=== PATIENT | male | born 1965 | race Caucasian/White ===

== ENCOUNTER 2021-10-15 11:46 | Emergency (ER) | payer MEDICARE, OTHER, SELFPAY ==
[2021-10-15 12:31] VITALS: BP 166/103; PULSE 80; RESP 14; TEMP 36.6; O2SAT 96; BMI 29.2
[2021-10-15 14:43] VITALS: BP 153/67; PULSE 76; RESP 16; O2SAT 99
--- NOTE | 2021-10-15 15:46 | ED_ITS ---
HPI - Back Pain/Injury General Chief Complaint: Back Pain/Injury Stated Complaint: Low back pain Time Seen by Provider: 10/15/21 15:17 Source: patient History of Present Illness HPI Narrative: The patient complains of right low back pain, rating to the right anterior thigh. He has had similar symptoms before. He has had reasonably consistent right thigh discomfort over the past 2 weeks. He has massage therapist. Back component has increased significantly over the last 2 days. He could not work today. He has no chronic back pain. He has no incontinence. He has no numbness or weakness in the lower extremities. He has no prior diagnosis of sciatica Related Data Previous Rx's Medication Instructions Recorded prednisone 20 mg tablet 60 mg PO DAILY 5 Days tab 10/15/21 Allergies Allergy/AdvReac Type Severity Reaction Status Date / Time acetaminophen [From Percocet] Allergy Verified 10/15/21 12:31 oxycodone [From Percocet] Allergy Verified 10/15/21 12:31 Patient History Social History Smoking Status: Former smoker Smoking Status: Former smoker alcohol intake frequency: holidays/special occasions only Substance Use Type: marijuana Exam Initial Vital Signs Initial Vital Signs: Vital Signs Temperature 97.8 F 10/15/21 12:31 Pulse Rate 80 10/15/21 12:31 Respiratory Rate 14 10/15/21 12:31 Blood Pressure 166/103 H 10/15/21 12:31 Pulse Oximetry 96 10/15/21 12:31 Course Orders Ordered: ED Orders 10/15/21 14:29 Urine Microscopic Stat Discontinued Medications Ketorolac Tromethamine (Ketorolac 30 Mg/Ml Vial) 30 mg IM NOW ONE Stop: 10/15/21 15:43 Prednisone (Prednisone 20 Mg Tablet) 60 mg PO NOW ONE Stop: 10/15/21 15:43 Vital Signs Vital signs: Vital Signs - 8 hr 10/15/21 12:31 10/15/21 14:43 Temperature 97.8 F Pulse Rate 80 76 Respiratory Rate 14 16 Blood Pressure 166/103 H 153/67 H Pulse Oximetry 96 99 MDM - Back Pain/Injury Lab Data Labs: Urine Dip Bedside Urine Glucose Negative Bedside Urine Bilirubin - Negative Bedside Urine Ketone - Negative Urine Specific [place] 1.015 Bedside Urine Occult Blood - Negative Bedside Urine pH 6.0 Bedside Urine Protein - Negative Bedside Urine Urobilinogen +/- 1mg Bedside Urine Nitrite - Negative Bedside Urine Leukocytes - Negative Esterase Discharge Plan Departure Patient Disposition: Home Clinical Impression: Sciatica Instructions: DI for Sciatica Activity Restrictions/Additional Instructions: Advil 3 tablets every 6 hours as needed for pain. Prednisone 60 mg daily for the next 5 days. No work for the next 3 days. Follow-up with PCM, if symptoms persist you need additional evaluation for the back pain. Return here as needed. Prescriptions: New prednisone 20 mg tablet 60 mg PO DAILY 5 Days 0RF Stand Alone Forms: Work Release Note
[2021-10-15] MEDS: KETOROLAC 30 MG/ML VIAL IM (15:52)
[2021-10-15] MEDS: predniSONE 20 MG TABLET 60 MG PO (15:53)
== END 2021-10-15 16:12 | disposition home or self-care (01) ==
PROVIDERS: Emergency Provider Emergency Medicine
DX: M54.31 Sciatica, right side (principal)
CPT/HCPCS: 81003; 96372; 99283; J1885

== ENCOUNTER 2022-08-05 11:50 | Emergency (ER) | payer MEDICARE, OTHER, SELFPAY ==
[2022-08-05 11:57] VITALS: BP 171/103; PULSE 96; RESP 17; TEMP 36.4; O2SAT 96; BMI 30.1
--- NOTE | 2022-08-05 13:40 | ED.BACK ---
HPI - Back Pain/Injury <JUAN PABLO Hong - Last Filed: 08/05/22 14:11> General Chief Complaint: Back Pain/Injury Stated Complaint: low back pain sciatica RT side all way down Time Seen by Provider: 08/05/22 13:25 Source: patient History of Present Illness HPI Narrative: 57-year-old male who has a history low back pain with sciatica symptoms on his right leg who also has a history of psoriasis, psoriatic arthritis in his on methotrexate for this, he presents to the emergency department complaining flare of his low back pain with right-sided sciatica symptoms going down the lateral and anterior thigh with numbness and tingling sensation without weakness, incontinence, urinary retention or other symptom. 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 Complains of sciatica symptoms and muscle spasms which are painful, states that he is had in the past not show dangerous abnormality. Related Data Home Medications Medication Instructions Recorded Confirmed etanercept [Enbrel] SUBCUT 07/26/22 07/26/22 lisinopril PO 07/26/22 07/26/22 methotrexate PO 07/26/22 07/26/22 omeprazole magnesium PO 07/26/22 07/26/22 sertraline 100 mg tablet 100 mg PO DAILY 07/26/22 07/26/22 Previous Rx's Medication Instructions Recorded ibuprofen 800 mg tablet 800 mg PO Q8H PRN pain #30 tabs 08/05/22 lidocaine 5 % topical patch 1 patch topical DAILY #15 ea 08/05/22 (Lidoderm) methocarbamol 750 mg tablet 750 mg PO Q8H PRN muscle spasm #20 08/05/22 tabs prednisone 20 mg tablet 20 mg PO DAILY 5 days #5 tabs 08/05/22 Allergies Allergy/AdvReac Type Severity Reaction Status Date / Time acetaminophen [From Percocet] Allergy Verified 08/05/22 11:57 oxycodone [From Percocet] Allergy Verified 08/05/22 11:57 Review of Systems <JUAN PABLO Hong - Last Filed: 08/05/22 14:11> Review of Systems ROS Unobtainable: All systems reviewed & are unremarkable except as noted in HPI and below Patient History <JUAN PABLO Hong - Last Filed: 08/05/22 14:11> Social History Smoking Status: Former smoker Smoking Status: Former smoker alcohol intake frequency: holidays/special occasions only Substance Use Type: marijuana Exam <JUAN PABLO Hong - Last Filed: 08/05/22 14:11> Narrative Exam Narrative: Reviewed vitals signs and nursing notes. General: cooperative, comfortable, in no acute distress, well groomed MSK: moves all extremities, neurovascularly intact, no weakness, normal tone, patient is standing and pacing because he states it hurts to sit, he is ambulatory, no tenderness to his lumbar spine with palpation, right side paraspinal musculature is tense Skin: brisk capillary refill, without pallor or erythema Neuro: normal speech and cognition, A&O x3, ambulatory, clear speech Psych: mental status is grossly normal, congruent mood, normal affect, pleasant and cooperative Initial Vital Signs Initial Vital Signs: Vital Signs Temperature 97.6 F 08/05/22 11:57 Pulse Rate 96 H 08/05/22 11:57 Respiratory Rate 17 08/05/22 11:57 Blood Pressure 171/103 H 08/05/22 11:57 Pulse Oximetry 96 08/05/22 11:57 Oxygen Delivery Method 08/05/22 11:57 <Bryce Last MD - Last Filed: 08/05/22 17:39> Initial Vital Signs Initial Vital Signs: Vital Signs Temperature 97.6 F 08/05/22 11:57 Pulse Rate 96 H 08/05/22 11:57 Respiratory Rate 17 08/05/22 11:57 Blood Pressure 171/103 H 08/05/22 11:57 Pulse Oximetry 96 08/05/22 11:57 Oxygen Delivery Method 08/05/22 11:57 Course <JUAN PABLO Hong - Last Filed: 08/05/22 14:11> Orders Ordered: Discontinued Medications Acetaminophen (Acetaminophen 325 Mg Tablet) 975 mg PO NOW ONE Stop: 08/05/22 13:40 Last Admin: 08/05/22 13:48 Dose: 975 mg Documented By: TRA Ketorolac Tromethamine (Ketorolac 30 Mg/Ml Vial) 30 mg IM NOW ONE Stop: 08/05/22 13:40 Last Admin: 08/05/22 13:48 Dose: 30 mg Documented By: TRA Lidocaine (Lidocaine Patch 1 Each Adh..Patch) 1 each TOP NOW ONE Stop: 08/05/22 13:40 Last Admin: 08/05/22 13:48 Dose: 1 each Documented By: NR Methocarbamol (Methocarbamol 500 Mg Tablet) 500 mg PO NOW ONE Stop: 08/05/22 13:40 Last Admin: 08/05/22 13:48 Dose: 500 mg Documented By: NR Prednisone (Prednisone 20 Mg Tablet) 40 mg PO NOW ONE Stop: 08/05/22 13:40 Last Admin: 08/05/22 13:49 Dose: 40 mg Documented By: NR Vital Signs Vital signs: Vital Signs - 8 hr 08/05/22 11:57 08/05/22 14:22 Temperature 97.6 F Pulse Rate 96 H 78 Respiratory Rate 17 20 Blood Pressure 171/103 H 130/96 H Pulse Oximetry 96 96 Oxygen Delivery Method Room Air Room Air <Bryce Last MD - Last Filed: 08/05/22 17:39> Orders Ordered: Discontinued Medications Acetaminophen (Acetaminophen 325 Mg Tablet) 975 mg PO NOW ONE Stop: 08/05/22 13:40 Last Admin: 08/05/22 13:48 Dose: 975 mg Documented By: NR Ketorolac Tromethamine (Ketorolac 30 Mg/Ml Vial) 30 mg IM NOW ONE Stop: 08/05/22 13:40 Last Admin: 08/05/22 13:48 Dose: 30 mg Documented By: TRA Lidocaine (Lidocaine Patch 1 Each Adh..Patch) 1 each TOP NOW ONE Stop: 08/05/22 13:40 Last Admin: 08/05/22 13:48 Dose: 1 each Documented By: TRA Methocarbamol (Methocarbamol 500 Mg Tablet) 500 mg PO NOW ONE Stop: 08/05/22 13:40 Last Admin: 08/05/22 13:48 Dose: 500 mg Documented By: TRA Prednisone (Prednisone 20 Mg Tablet) 40 mg PO NOW ONE Stop: 08/05/22 13:40 Last Admin: 08/05/22 13:49 Dose: 40 mg Documented By: TRA Vital Signs Vital signs: Vital Signs - 8 hr 08/05/22 11:57 08/05/22 14:22 Temperature 97.6 F Pulse Rate 96 H 78 Respiratory Rate 17 20 Blood Pressure 171/103 H 130/96 H Pulse Oximetry 96 96 Oxygen Delivery Method Room Air Room Air [facility] - Back Pain/Injury <Anita Maxwell, [facility] - Last Filed: 08/05/22 14:11> [facility] Narrative Medical decision making narrative: Patient presents with 3-4 days of worsening low back pain with right-sided sciatica, without recent trauma, and is afebrile. Suspect likely musculoskeletal etiology, pt is nontoxic appearing with no overt risk factors for epidural hematoma or abscess, caudal equina, and has a nonfocal neuro exam. Spine was non-tender to palpation, pt is ambulatory, without new weakness. Considered nephrolithiasis/pyelonephritis, epidural abscess/hematoma, ligamental injury, paraspinal or other muscular strain, chronic pain, osteoarthritis, disk injury/herniation, degenerative disease, radiculopathy, and critical cord compression. Pt is neurovascularly intact distally, afebrile, without immunosuppression or evidence of infection, peritoneal signs, hypertensive crisis, incontinence, meningeal signs, or abdominal pain with low suspicion for AAA. Without findings concerning for caudal equina, transverse myelitis, spinal vascular malformation, osteomyelitis, degenerative myelopathy, or cord infarction. He has had physical therapy in the past but states it did not help, he [facility] [place], recommend referral to physical therapy from PCP, follow-up for new evaluation of his pain. Patient's symptoms improved with above-stated therapies. Discharge Plan Departure Patient Disposition: Home Clinical Impression: Acute lumbar radiculopathy Instructions: DI for Back Pain With Sciatica, DI for Back Spasm Activity Restrictions/Additional Instructions: *You have been diagnosed with an exacerbation of low back pain with sciatica symptoms. Please use these medications to help reduce your flare, avoid overuse, over stretching, and over working this acute injury. Please follow-up with your PCP for another referral to physical therapy for another evaluation. That can be the main thing to help reduce flares. You may benefit from a referral to Rheumatology as well, [place]. Please take these medications and use heat and ice to help with your symptoms, rest, stay hydrated, return for new or worsening symptoms. If you need a referral to Orthopedics, please get 1 through and you can follow-up at [facility] if you like. You something topical like a lidocaine patch or CBD cream, take Tylenol 975 mg with ibuprofen every 8 hours with food and water, please take your steroid with food as well starting tomorrow, use a muscle relaxer every 6-8 hours as needed for spasm. *What to do: *Please continue to take your regular medications as directed. [ x New medication prescriptions sent to your pharmacy: [[facility]] [ ] New medication written as a paper prescription [ ] No new medications given *Please follow up with your primary care provider in 2-3 days, call for an appointment. Let them know you were seen in the Emergency Department and that we asked that you be seen for follow-up. We will electronically transmit a record of today's note if your PCP is in our system *If you do not have a primary care provider please contact [phone] to establish care with one of the [facility] primary care providers. *Return to Emergency Department if you should have any new, worsening, or concerning symptoms, such as [fever greater than 101F, chills, worsening pain, persistent vomiting or other bothersome symptoms]. Prescriptions: New methocarbamol 750 mg tablet 750 mg PO Q8H PRN (Reason: muscle spasm) Qty: 20 0RF ibuprofen 800 mg tablet 800 mg PO Q8H PRN (Reason: pain) Qty: 30 0RF lidocaine [Lidoderm] 5 % adhesive patch,medicated 1 patch topical DAILY Qty: 15 0RF Rx Instructions: leave on most painful area for up to 12 hrs prednisone 20 mg tablet 20 mg PO DAILY 5 Days Qty: 5 0RF No Action lisinopril PO omeprazole magnesium PO sertraline 100 mg tablet 100 mg PO DAILY methotrexate PO etanercept [Enbrel] SUBCUT Referrals: [facility] [Provider Group] Provider,Fern MONTE [Primary Care Provider] - Visit Report Forms: Patient Portal/API <Bryce Last MD - Last Filed: 08/05/22 17:39> Cosign ED Attending Cosignature Attestation: I was immediately available in the department for consultation. ?This documentation has been reviewed and I agree with assessment and plan. Supervised by Bryce Last MD
[2022-08-05] MEDS: ACETAMINOPHEN 325 MG TABLET 975 MG PO (13:48)
[2022-08-05] MEDS: methocarbamoL 500 MG TABLET PO (13:48)
[2022-08-05] MEDS: LIDOCAINE PATCH 1 EACH ADH..PATCH TOP (13:48)
[2022-08-05] MEDS: KETOROLAC 30 MG/ML VIAL IM (13:48)
[2022-08-05] MEDS: predniSONE 20 MG TABLET 40 MG PO (13:49)
[2022-08-05 14:22] VITALS: BP 130/96; PULSE 78; RESP 20; O2SAT 96
== END 2022-08-05 14:16 | disposition home or self-care (01) ==
PROVIDERS: Emergency Provider Nurse Practitioner Critical Care Medicine
DX: M54.16 Radiculopathy, lumbar region (principal)
CPT/HCPCS: 96372; 99283; J1885

== ENCOUNTER → 2022-08-20 11:20 | Outpatient (CLI) | payer MEDICARE, OTHER, SELFPAY ==
--- NOTE | 2022-08-20 11:22 | DI.MRI.S_ITS ---
PROCEDURE: MR LUMBAR SPINE WO CON INDICATIONS: Lesion of sciatic nerve, right lower limb TECHNIQUE: Noncontrast sagittal T1 spin echo and T2 fast echo, sagittal STIR, and T2 fast spin echo through the lumbar spine. In cases with scoliosis, additional coronal T2 fast spin echo may be performed. COMPARISON: None. FINDINGS: Image quality: Excellent. Alignment and Curvature: There is normal bony alignment. Bone Marrow: Marrow is of normal overall signal. No acute vertebral body compression fractures. Spinal Cord: Conus medullaris terminates at the L1 level. Visualized cord demonstrates normal signal and size. Paraspinous Soft Tissues: No paravertebral masses. T12-L1, L1-2, L2-3, and L3-4: No significant disc bulging, spinal canal stenosis, or neural foraminal narrowing. L4-L5: Mild are ventral disc bulging and mild bilateral facet hypertrophy, which result in mild bilateral neural foraminal narrowing without significant spinal canal stenosis.. L5-S1: Right paracentral disc extrusion is seen measuring approximately 1.5 x 0.8 x 0.9 cm. There is effacement of the right lateral recess and impingement on the traversing right S1 nerve root. Additional degenerative changes and mild bilateral facet hypertrophy at this level result in mild narrowing of the bilateral neural foramina. No high-grade spinal canal stenosis. IMPRESSION: 1. At L5-S1, a right paracentral disc extrusion result in effacement of the right lateral recess and impinging of the traversing right S1 nerve root. Recommend correlation with neurologic exam findings. 2. Mild degenerative changes result in mild bilateral neural foraminal narrowing at the L4-5 and L5-S1 levels. Approved by: Guerrero Cristina M.D. on 08/20/2022 at 12:04
== END ==
PROVIDERS: Referring Provider Nurse Practitioner Family; Visit Provider Nurse Practitioner Family
DX: G57.01 Lesion of sciatic nerve, right lower limb (principal); M51.27 Other intervertebral disc displacement, lumbosacral region; M47.816 Spondylosis without myelopathy or radiculopathy, lumbar region; M47.817 Spondylosis without myelopathy or radiculopathy, lumbosacral region; M48.061 Spinal stenosis, lumbar region without neurogenic claudication; M48.07 Spinal stenosis, lumbosacral region
CPT/HCPCS: 72148

== ENCOUNTER → 2022-09-10 08:57 | Outpatient (CLI) | payer MEDICARE, OTHER, SELFPAY ==
[2022-09-10 10:14] LABS: Add Manual Diff / Slide Review NO; Basophils Absolute Auto 100 /uL (0-100); Basophils Percent Auto 0.7 % (0-2); Eosinophils Absolute Auto 300 /uL (0-450); Eosinophils Percent Auto 3.3 % (2-4); Hematocrit 45.5 % (41-53); Hemoglobin 15.8 g/dL (13.5-17.5); Lymphocytes Absolute Auto 2000 /uL (1100-4500); Lymphocytes Percent Auto 25.3 % (25-40); Mean Corpuscular HGB Conc 34.8 % (30-36); Mean Corpuscular Hemoglobin 29.9 PG (26-34); Mean Corpuscular Volume 85.9 fL (80-100); Monocytes Absolute Auto 800 /uL (0-900); Monocytes Percent Auto 10.3 % (3-14); Neutrophils Absolute Auto 4800 /uL (1500-7000); Neutrophils Percent Auto 60.4 % (50-75); Platelet Count 294 X10^3/uL (150-400); Red Cell Distribution Width 13.6 % (11.6-14.8); White Blood Cell Count 7.9 X10^3/uL (4.5-11.0)
[2022-09-10 10:50] LABS: Blood Urea Nitrogen 14 mg/dL (9-20); Calcium 9.4 mg/dL (8.4-10.2); Carbon Dioxide 25 mmol/L (22-32); Chloride 101 mmol/L (98-107); Estimated Glomerular Filt Rate > 60 mL/min (>60); Glucose 94 mg/dL (70-100); HEMOLYSIS < 15 (0-50); Potassium 4.4 mmol/L (3.4-5.1); Sodium 139 mmol/L (137-145)
== END ==
PROVIDERS: Referring Provider Orthopaedic Surgery Orthopaedic Surgery of the Spine; Visit Provider Orthopaedic Surgery Orthopaedic Surgery of the Spine
DX: R73.9 Hyperglycemia, unspecified (principal); Z01.812 Encounter for preprocedural laboratory examination
CPT/HCPCS: 36415; 80048; 85025

== ENCOUNTER → 2022-09-20 09:56 | Outpatient (CLI) | payer MEDICARE, OTHER, SELFPAY ==
[2022-09-20 10:34] LABS: COVID19 -Nasal RAPID Negative (Negative)
== END ==
PROVIDERS: Referring Provider Orthopaedic Surgery Orthopaedic Surgery of the Spine; Visit Provider Orthopaedic Surgery Orthopaedic Surgery of the Spine
DX: Z20.822 Contact with and (suspected) exposure to COVID-19 (principal)
CPT/HCPCS: 87635; C9803

== ENCOUNTER 2022-09-22 06:13 | Day surgery (SDC) | payer MEDICARE, OTHER, SELFPAY ==
[2022-09-16 14:11] VITALS: BMI 30.8
[2022-09-22] VITALS (14 sets, daily range): BP systolic 90–132; BP diastolic 61–89; PULSE 67–101; RESP 8–26; TEMP 36–36.4; O2SAT 90–96; BMI 30.9
--- NOTE | 2022-09-22 | DI.RAD.S_ITS ---
PROCEDURE: XR LUMBAR SPINE 2-3V INDICATIONS: L5-S1 MICRO D TECHNIQUE: Two intraoperative fluoroscopic views of the lumbar spine were acquired. COMPARISON: None. FINDINGS: There is a surgical device projecting over the L5-S1 area to the left (as labeled on the film). IMPRESSION: Intraoperative fluoroscopy for micro discectomy. Dictated by: Victorina Palm M.D. on 09/22/2022 at 11:23 Approved by: Victorina Palm M.D. on 09/22/2022 at 11:24
[2022-09-22] MEDS: LACTATED RINGERS 1,000 ML 42 ML IV (07:07)
--- NOTE | 2022-09-22 07:48 | PM.PREOP ---
Pre-operative Note COVID-19 COVID-19 status: Negative Result date/Date tested (Pos, Neg/Pending): 09/21/22 Criteria for continued procedure: Expected advancement of disease process, Possibility delay results in more complex future surgery or treatment, Increased loss of function, Continuing or worsening of significant or severe pain, Deterioration of the patient's condition or overall health and Delay expected to result in less-positive ultimate med/surg outcome Interval Note History & Physical reviewed/Exam performed by Physician: Yes Changes to H&P: No
[2022-09-22] MEDS: CEFAZOLIN 2 GM/100 ML PREMIX 100 ML IV (08:34)
--- NOTE | 2022-09-22 08:46 | SUR.OPER ---
Prone on spine table, head in foam head support, padded chest and pelvic supports, gel pad at knees, lower legs supported by pillows; nipples, genitalia and toes free of pressure, arms secured on foam padded arm boards at <90 degrees abduction. Tape over blanket at thigh secured to table.
[2022-09-22] MEDS: BUPIVACAINE 0.25% (PF) 30 ML, EPINEPHrine 0.3 MG INJ (08:55)
[2022-09-22] MEDS: methylPREDNISolone acet DEPO 40 MG/ML VIAL INJ (08:57)
--- NOTE | 2022-09-22 09:09 | PM.OP.1 ---
Operative Date/Time/Diagnoses Date of procedure: 09/22/22 Time of procedure: 07:40 Pre-op diagnosis: 1. L5-S1 disc herniation 2. L5-S1 radiculopathy Post-op diagnosis: same Procedure & Clinicians Procedure: 1. L5-S1 right microdiscectomy 2 Utilization of microsurgical technique and operating microscope Same procedure as scheduled: Yes Indications: Patient has been having chronic back pain and worsening lumbar radiculopathy. Patient failed multiple conservative management with worsening pain weakness and numbness in her lower extremity. Patient has been having difficulty performing activity of daily living. After discussing risks benefits of treatment options, patient elected proceed with surgery. Surgeon: Aaron Langston Clinical Data Management Director: Maryse Olivera Click Yes if Unassisted: No Anesthesia Type: General Operative Notes Closure Type: primary Specimen(s): none sent Estimated Blood Loss (mL): 5 Blood products transfused: none Procedure in detail: Patient was seen in the preoperative area. Risks and benefits of the surgery was discussed with the patient. Informed consent was obtained from the patient and placed in the chart. Surgical site was marked. Patient was taken to the operative room. General anesthesia was administered. Prophylactic antibiotic was given to the patient less than 30 min before the incision was made. Patient was placed into a prone position on the Valerio table. Patient's back was then prepped and draped in the sterile fashion. Time-out was performed at this time. Using AP and lateral C-arm imaging the interval between L5-S1 was identified and marked on patient's back. A 1 inch incision 1 in from midline was made on the right side. The fascia was incised in line with skin incision. Globus MARS retractors was placed inside the incision and docked onto the L5 lamina. Using microsurgical technique and operating microscope, a L5 laminotomy was performed using a Kerrison rongeur. Liagamentum flavum was resected at the site of the laminotomy. The disc space at L5-S1 was identified. Microdiscectomy was performed by incising the annulus with #11 blade. Microcurettes and pituitary was used to removed herniated disc fragments of disc from the epidural space. After the microdiskectomy was completed, the area medial lateral superior and inferior to the area of the microdiskectomy was inspected and explored using a micro curette. No other impinging structure was identified. The wound was then irrigated with sterile normal saline. 40 mg Depo-Medrol was placed into the epidural space. The deep fascia was closed with 1-0 Vicryl. The subcutaneous tissue was closed with 2-0 Vicryl. The skin was closed with skin cristino. Patient tolerated the procedure well. There were no complications. Patient was transferred recovery room in stable condition. Complications: none Post-operative Condition: stable Disposition: PACU Plan for aftercare: Discharge to home
[2022-09-22] MEDS: fentaNYL 100 MCG/2 ML INJ IV (10:20)
[2022-09-22] MEDS: HYDROCODONE/ACET 5/325 TABLET 1 TAB PO (10:30)
--- NOTE | 2022-09-22 11:08 | SUR.PHASEII ---
Report given to
--- NOTE | 2022-09-22 11:16 | SUR.PHASEI ---
[place] sputum noted in suction container.
--- NOTE | 2022-09-22 12:25 | SUR.PHASEII ---
1145 pt with with walker with steady gait alert/oriented maintains 95% RA spo2 at rest without further signs of sedation
== END 2022-09-22 11:45 | disposition home or self-care (01) ==
PROVIDERS: PCP Nurse Practitioner Family; Referring Provider Orthopaedic Surgery Orthopaedic Surgery of the Spine; Visit Provider Orthopaedic Surgery Orthopaedic Surgery of the Spine
PROC: (CPT 63030; principal; 2022-09-22 07:45)
DX: M51.16 Intervertebral disc disorders with radiculopathy, lumbar region (principal); I10 Essential (primary) hypertension; G47.30 Sleep apnea, unspecified
CPT/HCPCS: 63030; 72100; 76000; 82962; 93005; J0171; J0330; J0690; J1030; J1100; J1170; J2310; J2704; J3010

== ENCOUNTER 2023-04-08 06:47 | Inpatient (IN) | payer MEDICARE, OTHER, SELFPAY ==
[2023-04-08] VITALS (39 sets, daily range): BP systolic 98–152; BP diastolic 59–105; PULSE 60–110; RESP 11–40; TEMP 36.2–39.2; O2SAT 90–99; BMI 30.1
--- NOTE | 2023-04-08 07:15 | DI.RAD.S_ITS ---
PROCEDURE: XR CHEST 1V INDICATIONS: fever, cough, vertigo long-standing TECHNIQUE: One view of the chest was acquired. COMPARISON: [facility], CR, CHEST 2VW, 06/23/2011, 10:58. FINDINGS: Surgical changes and devices: None. Lungs and pleura: Hazy opacity in the left upper lobe, not seen on remote chest x-ray. No pleural effusions or pneumothorax. Mediastinum: Mediastinal contours appear normal. Heart size is normal. Bones and chest wall: No suspicious bony lesions. Overlying soft tissues appear unremarkable. IMPRESSION: Hazy opacity in the left upper lobe. Findings concerning for pneumonia. Two-view chest x-ray or chest CT may be helpful for further evaluation. Dictated by: Romain Jorgensen M.D. on 04/08/2023 at 7:40 Approved by: Romain Jorgensen M.D. on 04/08/2023 at 7:43
[2023-04-08] MEDS: ACETAMINOPHEN 325 MG TABLET 975 MG PO (07:26)
[2023-04-08] MEDS: SODIUM CHLORIDE 0.9% 2,313.33 ML 771.11 ML IV (07:27)
[2023-04-08 07:28] LABS: Add Manual Diff / Slide Review NO; Basophils Absolute Auto 0 /uL (0-100); Basophils Percent Auto 0.3 % (0-2); Eosinophils Absolute Auto 300 /uL (0-450); Eosinophils Percent Auto 3.1 % (2-4); Hematocrit 43.6 % (41-53); Hemoglobin 15.2 g/dL (13.5-17.5); Lymphocytes Absolute Auto 500 /uL (1100-4500); Lymphocytes Percent Auto 5.3 % (25-40); Mean Corpuscular HGB Conc 34.8 % (30-36); Mean Corpuscular Hemoglobin 30.3 PG (26-34); Mean Corpuscular Volume 87.2 fL (80-100); Monocytes Absolute Auto 1100 /uL (0-900); Monocytes Percent Auto 11.2 % (3-14); Neutrophils Absolute Auto 7900 /uL (1500-7000); Neutrophils Percent Auto 80.1 % (50-75); Platelet Count 214 X10^3/uL (150-400); Red Cell Distribution Width 14.7 % (11.6-14.8); White Blood Cell Count 9.8 X10^3/uL (4.5-11.0)
[2023-04-08 07:37] LABS: Lactate (Lactic Acid) 2.2 mmol/L (0.7-2.1)
--- NOTE | 2023-04-08 07:37 | ED_ITS ---
HPI - Fever General Chief Complaint: Shortness of Breath/Dyspnea Stated Complaint: vertigo, dehydrated, dizzy, bodyaches Time Seen by Provider: 04/08/23 07:15 Source: patient Mode of arrival: Ambulatory History of Present Illness HPI Narrative: This is a 58-year-old male on methotrexate and Enbrel for psoriasis, lisinopril for hypertension, vertigo and sertraline daily. Patient states over the last 2 days he is had mild nonproductive cough little bit of chest discomfort and shortness of breath, fevers with night sweats and myalgias. Patient states he took Excedrin the day before felt better and then took some yesterday felt better and then overnight developed rigors, sweats. He presents with fever, tachycardic and tachypneic 96% room air. Patient states he has a longstanding history of psoriasis diagnosed around 2011 has been on methotrexate and Enbrel for this. He also notes he is got vertigo longstanding her many years often worse use his head to the right. He states that has been present and has been little bit worsening over the past month. He states it is about at its normal baseline currently. He denies headache, no neck pain, no shortness of breath but does have little chest discomfort. He denies any nausea or vomiting, he denies any diarrhea constipation, no dysuria urgency or frequency. He states he has been drinking a lot of work water this morning and has not had urinate yet. Notes he sometimes gets lymph nodes that enlarged in his right groin particularly when he is ill and they are enlarged today. Patient denies any new rash or skin changes. Patient does state he had an admission for Pseudomonas bacteremia in the 2011 timeframe, secondary to his psoriasis. Patient had back surgery in the past year, he states his back is feeling very well today and it has been very successful. Allergic to Percocet. Former tobacco user, occasional alcohol, uses marijuana but no illicit. Related Data Home Medications Medication Instructions Recorded Confirmed etanercept 50 mg/mL (1 mL) 50 mg SUBCUT 2XW 09/22/22 04/08/23 subcutaneous syringe (Enbrel) lisinopril 20 mg tablet 20 mg PO DAILY 09/22/22 04/08/23 methotrexate sodium 2.5 mg tablet 15 mg PO QWEEK 09/22/22 04/08/23 omeprazole 40 mg capsule,delayed 40 mg PO DAILY 09/22/22 04/08/23 release sertraline 100 mg tablet 100 mg PO DAILY 09/22/22 04/08/23 Allergies Allergy/AdvReac Type Severity Reaction Status Date / Time oxycodone [From Percocet] Allergy Unknown fever, Verified 09/22/22 06:43 nausea Review of Systems Review of Systems ROS Unobtainable: All systems reviewed & are unremarkable except as noted in HPI and below Patient History Medical History Depression Headache HTN (hypertension) Psoriasis Psoriatic arthritis Sleep apnea Surgical History (Updated 04/08/23 @ 15:10 by Gregg Leigh DO) H/O foot surgery History of lumbar surgery Social History household members: spouse Smoking Status: Former smoker alcohol intake: current Smoking Status: Former smoker alcohol intake frequency: holidays/special occasions only Substance Use Type: marijuana Exam Narrative Exam Narrative: GEN: well nourished, well appearing male, alert and oriented x 3, patient appears to be in mild distress. HEENT: Atraumatic, pupils are equal round reactive to light, extraocular movements are intact, nares are clear, TMs are clear with no fluid, there is no conjunctival pallor. Throat is clear without any exudates, erythema, tonsillar enlargement or uvular deviation HEART: Regular rate and rhythm without murmur, clicks, rubs. Pulses are equal in upper and lower extremities LUNGS:Lungs clear to auscultation, no wheezes, rales, crackles, chest moves symmetrically, mild tachypnea. No accessory muscle use. Patient's speaks in full sentences. ABD:bowel sounds normal, soft, non-tender, no guarding, rebound, rigidity, no masses noted, no hepatosplenomegaly :No CVA tenderness, Male: normal external examination, no penile discharge or lesions, testicles non-tender, no inguinal hernias noted. MSCL: Non-tender, patient has some mild right inguinal lymphadenopathy. No skin changes. Nontender. No muscle atrophy, muscles strength 5/5 upper and lower extremities, full range of motion, normal gait NEURO:CN 2-12 intact, sensation normal. Initial Vital Signs Initial Vital Signs: Vital Signs Temperature 102.6 F H 04/08/23 06:55 Pulse Rate 110 H 04/08/23 06:55 Respiratory Rate 40 H 04/08/23 06:55 Blood Pressure 112/76 04/08/23 06:55 Pulse Oximetry 96 04/08/23 06:55 Oxygen Delivery Method Room Air 04/08/23 06:55 Course Orders Ordered: ED Orders 04/09/23 05:00 Basic Metabolic Panel DAILY Complete Blood Count AUTO DIFF DAILY Magnesium DAILY 04/10/23 05:00 Basic Metabolic Panel DAILY Complete Blood Count AUTO DIFF DAILY Magnesium DAILY 04/11/23 05:00 Basic Metabolic Panel DAILY Complete Blood Count AUTO DIFF DAILY Magnesium DAILY Acetaminophen (Acetaminophen 325 Mg Tablet) 650 mg PO Q6H PRN PRN Reason: Fever/Mild Pain (1-3) Enoxaparin Sodium (Enoxaparin 40 Mg/0.4 Ml Syringe) 40 mg SUBCUT DAILY [facility] Cefepime HCl 2 gm/ Sodium (Chloride) 100 mls @ 200 mls/hr IV Q8H JEN Last Infusion: 04/08/23 16:25 Dose: 200 mls/hr Documented By: Admin: 04/08/23 15:40 Dose: 200 mls/hr Documented By: CASIMIRO Sodium Chloride (Normal Saline 0.9%) 250 mls @ 21 mls/hr IV Q24H PRN PRN Reason: Flush Last Admin: 04/08/23 16:10 Dose: 21 mls/hr Documented By: CASIMIRO Ibuprofen (Ibuprofen 600 Mg Tablet) 600 mg PO Q6H PRN PRN Reason: Fever/Mild Pain (1-3) Naloxone HCl (Naloxone 0.4 Mg/Ml Vial) 0.2 mg IV Q2MIN PRN PRN Reason: Opiate Reversal Ondansetron HCl (Ondansetron 4 Mg Odt) 4 mg PO Q8HR PRN PRN Reason: Nausea And Vomiting Pantoprazole Sodium (Pantoprazole Dr 40 Mg Tablet) 40 mg PO 0700 [facility] Sertraline HCl (Sertraline 50 Mg Tablet) 100 mg PO DAILY [facility] Discontinued Medications Acetaminophen (Acetaminophen 325 Mg Tablet) 975 mg PO NOW ONE Stop: 04/08/23 07:17 Last Admin: 04/08/23 07:26 Dose: 975 mg Documented By: PEG Albuterol/Ipratropium (Albuterol/Ipratropium 3 Ml Ampul) 3 ml INH NOW ONE Stop: 04/08/23 08:49 Last Admin: 04/08/23 08:59 Dose: 3 ml Documented By: TRAVIS Sodium Chloride (Normal Saline 0.9%) 2,313.33 mls @ 771.11 mls/hr 30 ml/kg infuse over 3 hr (2313.33 ml) IV NOW ONE Stop: 04/08/23 10:14 Last Infusion: 04/08/23 10:37 Dose: 771.11 mls/hr Documented By: Admin: 04/08/23 07:27 Dose: 771.11 mls/hr Documented By: PEG Levofloxacin (Levaquin) 750 mg in 150 mls @ 100 mls/hr IV NOW ONE Stop: 04/08/23 09:33 Last Infusion: 04/08/23 11:24 Dose: 0 mls/hr Documented By: Admin: 04/08/23 08:35 Dose: 100 mls/hr Documented By: PEG Ibuprofen (Ibuprofen 400 Mg Tablet) 800 mg PO NOW ONE Stop: 04/08/23 08:37 Last Admin: 04/08/23 08:44 Dose: 800 mg Documented By: PEG Meclizine HCl (Meclizine Hcl 12.5 Mg Tablet) 50 mg PO NOW ONE Stop: 04/08/23 08:37 Last Admin: 04/08/23 08:44 Dose: 50 mg Documented By: PEG Vital Signs Vital signs: Vital Signs - 8 hr 04/08/23 06:55 04/08/23 07:26 04/08/23 07:34 Temperature 102.6 F H 102.1 F H Pulse Rate 110 H 96 H Respiratory Rate 40 H 35 H Blood Pressure 112/76 Pulse Oximetry 96 96 Oxygen Delivery Method Room Air Room Air Oxygen Flow Rate 04/08/23 07:16 04/08/23 07:17 04/08/23 07:17 Temperature Pulse Rate 105 H 103 H Respiratory Rate 17 15 Blood Pressure 125/80 Pulse Oximetry 96 96 Oxygen Delivery Method Oxygen Flow Rate 04/08/23 07:30 04/08/23 07:30 04/08/23 08:31 Temperature 101.1 F H Pulse Rate 101 H Respiratory Rate 28 H Blood Pressure 135/78 Pulse Oximetry 95 Oxygen Delivery Method Oxygen Flow Rate 04/08/23 08:36 04/08/23 08:00 04/08/23 08:00 Temperature Pulse Rate 95 H Respiratory Rate 17 Blood Pressure 127/75 Pulse Oximetry 94 97 Oxygen Delivery Method Nasal Cannula Oxygen Flow Rate 2 04/08/23 08:29 04/08/23 08:30 04/08/23 09:00 Temperature Pulse Rate 95 H 78 Respiratory Rate 22 18 Blood Pressure 115/68 Pulse Oximetry 90 L 95 Oxygen Delivery Method Nasal Cannula Oxygen Flow Rate 2 04/08/23 08:30 04/08/23 09:00 04/08/23 09:00 Temperature Pulse Rate 93 H 84 Respiratory Rate 14 20 Blood Pressure 111/64 Pulse Oximetry 95 94 Oxygen Delivery Method Nasal Cannula Oxygen Flow Rate 2 04/08/23 09:30 04/08/23 09:30 04/08/23 09:35 Temperature Pulse Rate 85 82 Respiratory Rate 24 23 Blood Pressure 102/59 L Pulse Oximetry 94 92 Oxygen Delivery Method Nasal Cannula Oxygen Flow Rate 2 04/08/23 09:40 04/08/23 09:45 04/08/23 09:50 Temperature Pulse Rate 86 80 76 Respiratory Rate 23 22 13 Blood Pressure Pulse Oximetry 93 93 93 Oxygen Delivery Method Nasal Cannula Nasal Cannula Nasal Cannula Oxygen Flow Rate 2 2 2 04/08/23 09:55 04/08/23 10:00 04/08/23 10:00 Temperature Pulse Rate 83 82 Respiratory Rate 11 L 13 Blood Pressure 102/60 Pulse Oximetry 91 90 L Oxygen Delivery Method Room Air Room Air Oxygen Flow Rate 04/08/23 10:11 04/08/23 10:12 04/08/23 10:12 Temperature Pulse Rate 79 78 Respiratory Rate 21 22 Blood Pressure 98/63 Pulse Oximetry 92 92 Oxygen Delivery Method Oxygen Flow Rate 04/08/23 10:15 04/08/23 10:20 04/08/23 10:25 Temperature Pulse Rate 75 76 77 Respiratory Rate 22 23 24 Blood Pressure Pulse Oximetry 92 91 91 Oxygen Delivery Method Oxygen Flow Rate 04/08/23 10:30 04/08/23 10:31 04/08/23 10:31 Temperature Pulse Rate 80 79 Respiratory Rate 17 16 Blood Pressure 123/82 Pulse Oximetry 91 91 Oxygen Delivery Method Oxygen Flow Rate 04/08/23 10:35 Temperature Pulse Rate 79 Respiratory Rate 23 Blood Pressure Pulse Oximetry 92 Oxygen Delivery Method Oxygen Flow Rate MDM - Fever Lab Data 04/08/23 07:19 04/08/23 07:19 Labs: Lab Results 04/08/23 04/08/23 04/08/23 Range/Units 07:19 07:19 07:19 WBC 9.8 (4.5-11.0) X10^3/uL RBC 5.00 (4.5-5.9) X10^6/uL Hgb 15.2 (13.5-17.5) g/dL Hct 43.6 (41-53) % MCV 87.2 (80-100) fL MCH 30.3 (26-34) PG MCHC 34.8 (30-36) % RDW 14.7 (11.6-14.8) % Plt Count 214 (150-400) X10^3/uL Neut % (Auto) 80.1 H (50-75) % Lymph % (Auto) 5.3 L (25-40) % [place] % (Auto) 11.2 (3-14) % Eos % (Auto) 3.1 (2-4) % Baso % (Auto) 0.3 (0-2) % Neut # (Auto) 7900 H (3777-6107) /uL Lymph # (Auto) 500 L (3681-6721) /uL [place] # (Auto) 1100 H (0-900) /uL Eos # (Auto) 300 (0-450) /uL Baso # (Auto) 0 (0-100) /uL PT 13.2 H (10.1-12.7) SECONDS INR 1.2 (0.9-1.3) APTT (26-36) SECONDS Sodium 134 L (137-145) mmol/L Potassium 3.8 (3.4-5.1) mmol/L Chloride 99 (98-107) mmol/L Carbon Dioxide 24 (22-32) mmol/L BUN 9 (9-20) mg/dL Creatinine 1.09 (0.66-1.25) mg/dL Estimated GFR > 60 (>60) mL/min BUN/Creatinine Ratio 8.3 (6-22) Glucose 132 H (70-100) mg/dL Lactate (0.7-2.1) mmol/L Calcium 8.5 (8.4-10.2) mg/dL Total Bilirubin 0.8 (0.2-1.3) mg/dL AST 38 (17-59) IU/L ALT 47 (<50) IU/L Alkaline Phosphatase 62 (38-126) U/L Total Creatine Kinase 131 (55-170) U/L Troponin I < 0.012 (0.01-0.034) ng/mL Total Protein 7.5 (6.3-8.2) g/dL Albumin 4.5 (3.5-5.0) g/dL Globulin 3.0 (1.7-4.1) g/dL Albumin/Globulin Ratio 1.5 (1.0-2.8) Procalcitonin 0.08 (<0.5) ng/mL Urine Color Urine Appearance Urine pH (4.5-8.0) Ur Specific [place] (1.000-1.035) Urine Protein (Negative) Urine Glucose (UA) (Negative) g/dL Urine Ketones (NEGATIVE) Urine Occult Blood (Negative) Urine Nitrate (Negative) Urine Bilirubin (NEGATIVE) Urine Urobilinogen (0.2) E.U./dL Ur Leukocyte Esterase (NEGATIVE) Urine RBC (0-5/HPF) Urine WBC (0-5/HPF) Ur Squamous Epith Cells (0-5/HPF) Urine Bacteria (None) Ur Culture Indicated? Chlamy pneumoniae PCR (Not Detect) Adenovirus (PCR) (Not Detect) B. pertussis DNA (PCR) (Not Detecte) B.parapertussis DNA PCR (Not Detecte) Coronavirus OC43 (PCR) (Not Detect) Coronavirus HKU1 (PCR) (Not Detect) Coronavirus 229E (PCR) (Not Detect) SARS-CoV-2 (PCR) (Not Detecte) Coronavirus NL63 (PCR) (Not Detect) Human Metapneumovir PCR (Not Detect) Influenza Type A (PCR) (Not Detect) Influenza Type B (PCR) (Not Detect) M. pneumoniae (PCR) (Not Detect) Parainfluenza 1 (PCR) (Not Detect) Parainfluenza 2 (PCR) (Not Detect) Parainfluenza 3 (PCR) (Not Detect) Parainfluenza 4 (PCR) (Not Detect) RSV (PCR) (Not Detect) Entero/Rhino (PCR) (Not Detect) 04/08/23 04/08/23 04/08/23 Range/Units 07:19 07:19 07:19 WBC (4.5-11.0) X10^3/uL RBC (4.5-5.9) X10^6/uL Hgb (13.5-17.5) g/dL Hct (41-53) % MCV (80-100) fL MCH (26-34) PG MCHC (30-36) % RDW (11.6-14.8) % Plt Count (150-400) X10^3/uL Neut % (Auto) (50-75) % Lymph % (Auto) (25-40) % [place] % (Auto) (3-14) % Eos % (Auto) (2-4) % Baso % (Auto) (0-2) % Neut # (Auto) (2247-9526) /uL Lymph # (Auto) (3568-7553) /uL [place] # (Auto) (0-900) /uL Eos # (Auto) (0-450) /uL Baso # (Auto) (0-100) /uL PT (10.1-12.7) SECONDS INR (0.9-1.3) APTT 28 (26-36) SECONDS Sodium (137-145) mmol/L Potassium (3.4-5.1) mmol/L Chloride (98-107) mmol/L Carbon Dioxide (22-32) mmol/L BUN (9-20) mg/dL Creatinine (0.66-1.25) mg/dL Estimated GFR (>60) mL/min BUN/Creatinine Ratio (6-22) Glucose (70-100) mg/dL Lactate 2.2 H (0.7-2.1) mmol/L Calcium (8.4-10.2) mg/dL Total Bilirubin (0.2-1.3) mg/dL AST (17-59) IU/L ALT (<50) IU/L Alkaline Phosphatase (38-126) U/L Total Creatine Kinase (55-170) U/L Troponin I (0.01-0.034) ng/mL Total Protein (6.3-8.2) g/dL Albumin (3.5-5.0) g/dL Globulin (1.7-4.1) g/dL Albumin/Globulin Ratio (1.0-2.8) Procalcitonin (<0.5) ng/mL Urine Color Urine Appearance Urine pH (4.5-8.0) Ur Specific [place] (1.000-1.035) Urine Protein (Negative) Urine Glucose (UA) (Negative) g/dL Urine Ketones (NEGATIVE) Urine Occult Blood (Negative) Urine Nitrate (Negative) Urine Bilirubin (NEGATIVE) Urine Urobilinogen (0.2) E.U./dL Ur Leukocyte Esterase (NEGATIVE) Urine RBC (0-5/HPF) Urine WBC (0-5/HPF) Ur Squamous Epith Cells (0-5/HPF) Urine Bacteria (None) Ur Culture Indicated? Chlamy pneumoniae PCR Not detected (Not Detect) Adenovirus (PCR) Not detected (Not Detect) B. pertussis DNA (PCR) Not detected (Not Detecte) B.parapertussis DNA PCR Not detected (Not Detecte) Coronavirus OC43 (PCR) Not detected (Not Detect) Coronavirus HKU1 (PCR) Not detected (Not Detect) Coronavirus 229E (PCR) Not detected (Not Detect) SARS-CoV-2 (PCR) Not detected (Not Detecte) Coronavirus NL63 (PCR) Not detected (Not Detect) Human Metapneumovir PCR Not detected (Not Detect) Influenza Type A (PCR) Not detected (Not Detect) Influenza Type B (PCR) Not detected (Not Detect) M. pneumoniae (PCR) Not detected (Not Detect) Parainfluenza 1 (PCR) Not detected (Not Detect) Parainfluenza 2 (PCR) Not detected (Not Detect) Parainfluenza 3 (PCR) Not detected (Not Detect) Parainfluenza 4 (PCR) Not detected (Not Detect) RSV (PCR) Not detected (Not Detect) Entero/Rhino (PCR) Not detected (Not Detect) 04/08/23 04/08/23 Range/Units 08:41 09:37 WBC (4.5-11.0) X10^3/uL RBC (4.5-5.9) X10^6/uL Hgb (13.5-17.5) g/dL Hct (41-53) % MCV (80-100) fL MCH (26-34) PG MCHC (30-36) % RDW (11.6-14.8) % Plt Count (150-400) X10^3/uL Neut % (Auto) (50-75) % Lymph % (Auto) (25-40) % [place] % (Auto) (3-14) % Eos % (Auto) (2-4) % Baso % (Auto) (0-2) % Neut # (Auto) (7226-0821) /uL Lymph # (Auto) (7240-5823) /uL [place] # (Auto) (0-900) /uL Eos # (Auto) (0-450) /uL Baso # (Auto) (0-100) /uL PT (10.1-12.7) SECONDS INR (0.9-1.3) APTT (26-36) SECONDS Sodium (137-145) mmol/L Potassium (3.4-5.1) mmol/L Chloride (98-107) mmol/L Carbon Dioxide (22-32) mmol/L BUN (9-20) mg/dL Creatinine (0.66-1.25) mg/dL Estimated GFR (>60) mL/min BUN/Creatinine Ratio (6-22) Glucose (70-100) mg/dL Lactate 0.9 (0.7-2.1) mmol/L Calcium (8.4-10.2) mg/dL Total Bilirubin (0.2-1.3) mg/dL AST (17-59) IU/L ALT (<50) IU/L Alkaline Phosphatase (38-126) U/L Total Creatine Kinase (55-170) U/L Troponin I (0.01-0.034) ng/mL Total Protein (6.3-8.2) g/dL Albumin (3.5-5.0) g/dL Globulin (1.7-4.1) g/dL Albumin/Globulin Ratio (1.0-2.8) Procalcitonin (<0.5) ng/mL Urine Color Yellow Urine Appearance Clear Urine pH 7.0 (4.5-8.0) Ur Specific [place] <=1.005 (1.000-1.035) Urine Protein Negative (Negative) Urine Glucose (UA) Negative (Negative) g/dL Urine Ketones Negative (NEGATIVE) Urine Occult Blood Negative (Negative) Urine Nitrate Negative (Negative) Urine Bilirubin Negative (NEGATIVE) Urine Urobilinogen 1.0 (0.2) E.U./dL Ur Leukocyte Esterase Negative (NEGATIVE) Urine RBC None seen (0-5/HPF) Urine WBC None seen (0-5/HPF) Ur Squamous Epith Cells None seen (0-5/HPF) Urine Bacteria None seen (None) Ur Culture Indicated? Cult not indicated Chlamy pneumoniae PCR (Not Detect) Adenovirus (PCR) (Not Detect) B. pertussis DNA (PCR) (Not Detecte) B.parapertussis DNA PCR (Not Detecte) Coronavirus OC43 (PCR) (Not Detect) Coronavirus HKU1 (PCR) (Not Detect) Coronavirus 229E (PCR) (Not Detect) SARS-CoV-2 (PCR) (Not Detecte) Coronavirus NL63 (PCR) (Not Detect) Human Metapneumovir PCR (Not Detect) Influenza Type A (PCR) (Not Detect) Influenza Type B (PCR) (Not Detect) M. pneumoniae (PCR) (Not Detect) Parainfluenza 1 (PCR) (Not Detect) Parainfluenza 2 (PCR) (Not Detect) Parainfluenza 3 (PCR) (Not Detect) Parainfluenza 4 (PCR) (Not Detect) RSV (PCR) (Not Detect) Entero/Rhino (PCR) (Not Detect) Imaging Data Chest x-ray: Radiologist's Impression: [address] [address] XRay Report Signed Patient: Connor Love MR#: [id number] : 1965 Acct:[id number] Age/Sex: 58 / M Date of Service: 04/08/23 Loc: ED Accession Number: [id number] ?? Procedure: XR chest 1V Ordering Provider: Khadra Simpson D.O. PROCEDURE:? XR CHEST 1V ? INDICATIONS:? fever, cough, vertigo long-standing ? TECHNIQUE:? One view of the chest was acquired.? ? COMPARISON:? [facility], CR, CHEST 2VW, 06/23/2011, 10:58. ? FINDINGS:? ? Surgical changes and devices:? None.? ? Lungs and pleura:? Hazy opacity in the left upper lobe, not seen on remote chest x-ray.? No pleural effusions or pneumothorax.? ? Mediastinum:? Mediastinal contours appear normal.? Heart size is normal.? ? Bones and chest wall:? No suspicious bony lesions.? Overlying soft tissues appear unremarkable.? ? IMPRESSION:? Hazy opacity in the left upper lobe.? Findings concerning for pneumonia. ? ? Two-view chest x-ray or chest CT may be helpful for further evaluation.? ? Dictated by: Romain Jorgensen M.D. on 04/08/2023 at 7:40 ? ? Approved by: Romain Jorgensen M.D. on 04/08/2023 at 7:43?? ECG Data Attestation: I personally reviewed and interpreted this ECG as follows: Prior ECG tracings: available for review Interpretation: Sinus rhythm rate of 99 [place] 142 QRS 82 QTC 415. No acute ST elevation or depression. Patient has prior from 09/22/22. [facility] [place] Narrative Medical decision making narrative: 58-year-old male presents with complaint of myalgias, cough, fever, little bit of chest discomfort for the past 2 days. Patient was febrile, tachycardic tachypneic. After Tylenol, fluids he felt much better and his vital signs improved accept he did have a drop in his O2 sat 88% at rest. Patient was not particularly wheezy but was given 1 DuoNeb , on re-evaluation patient feels much improved but continues to have hypoxia down to 89% on RA. With ambulation drops to 88%. Patient's workup shows hazy opacification in the left upper lobe was consistent with pneumonia, lactate slightly elevated at 2.2 and improved on repeat. CBC is negative, coags negative, sodium is 134, renal function and electrolytes are otherwise normal, glucose is 132, troponins negative as well as procalcitonin. UA is negative, respiratory panel is negative. Patient had 30cc/kg bolus ordered. Levaquin IV given. Patient BP dropped but had not completed fluid bolus. Spoke with Dr. Leigh, hospitalist: Patient accepted to inpatient admission. Critical Care Time Critical Care Time Attestation: The high probability of a clinically significant, sudden or life threatening deterioration of the [cardiac, pulm] system(s) required my full and direct attention, intervention and personal management. The aggregate critical care time was [] minutes. This time is in addition to time spent performing reported procedures but includes the following: [x] Data Review and interpretation [x] Patient assessment and monitoring of vital signs [x] Documentation [x] Medication orders and management Discharge Plan Departure Patient Disposition: Admitted As Inpatient Clinical Impression: Pneumonia, Sepsis Admit Date/Time: 04/08/23 11:02 Admit Provider: Gregg Leigh
[2023-04-08 07:38] LABS: Alanine Aminotransferase 47 IU/L (<50); Albumin 4.5 g/dL (3.5-5.0); Albumin Globulin Ratio 1.5 (1.0-2.8); Alkaline Phosphatase 62 U/L (38-126); Aspartate Aminotransferase 38 IU/L (17-59); BUN Creatinine Ratio 8.3 (6-22); Bilirubin Total 0.8 mg/dL (0.2-1.3); Blood Urea Nitrogen 9 mg/dL (9-20); Calcium 8.5 mg/dL (8.4-10.2); Carbon Dioxide 24 mmol/L (22-32); Chloride 99 mmol/L (98-107); Creatine Kinase 131 U/L (55-170); Estimated Glomerular Filt Rate > 60 mL/min (>60); Glucose 132 mg/dL (70-100); HEMOLYSIS < 15 (0-50); INR 1.2 (0.9-1.3); Potassium 3.8 mmol/L (3.4-5.1); Prothrombin Time 13.2 SECONDS (10.1-12.7); Sodium 134 mmol/L (137-145); Total Protein 7.5 g/dL (6.3-8.2)
[2023-04-08 07:44] LABS: PTT Partial Thromboplastin Tim 28 SECONDS (26-36)
[2023-04-08 07:50] LABS: Troponin I < 0.012 ng/mL (0.01-0.034)
[2023-04-08 07:55] LABS: Procalcitonin 0.08 ng/mL (<0.5)
[2023-04-08 08:32] LABS: Adenovirus Not Detected (Not Detect); B. parapertussis Not Detected (Not Detecte); Bordetella pertussis Not Detected (Not Detecte); Chlamydophila pneumoniae Not Detected (Not Detect); Coronavirus 229E Not Detected (Not Detect); Coronavirus HKU1 Not Detected (Not Detect); Coronavirus NL 63 Not Detected (Not Detect); Coronavirus OC43 Not Detected (Not Detect); Human Metapneumovirus Not Detected (Not Detect); Human Rhinovirus/Enterovirus Not Detected (Not Detect); Influenza A Not Detected (Not Detect); Influenza B Not Detected (Not Detect); Mycoplasma pneumoniae Not Detected (Not Detect); Parainfluenza Virus 1 Not Detected (Not Detect); Parainfluenza Virus 2 Not Detected (Not Detect); Parainfluenza Virus 3 Not Detected (Not Detect); Parainfluenza Virus 4 Not Detected (Not Detect); Respiratory Syncytial Virus Not Detected (Not Detect); SARS- CoV-2 Not Detected (Not Detecte)
[2023-04-08] MEDS: levoFLOXacin 750 MG/150 ML PIGGYBACK 100 MG IV (08:35)
[2023-04-08] MEDS: MECLIZINE HCL 12.5 MG TABLET 50 MG PO (08:44)
[2023-04-08] MEDS: IBUPROFEN 400 MG TABLET 800 MG PO (08:44)
[2023-04-08 08:49] LABS: Appearance Urine UA CLEAR; Bilirubin Urine UA NEGATIVE (NEGATIVE); Color Urine UA YELLOW; Glucose Urine UA NEGATIVE (Negative); Ketones Urine UA NEGATIVE (NEGATIVE); Leukocyte Esterase Urine UA NEGATIVE (NEGATIVE); Nitrite Urine UA NEGATIVE (Negative); Occult Blood Urine UA NEGATIVE (Negative); Protein Urine UA NEGATIVE (Negative); Specific Gravity Urine UA <=1.005 (1.000-1.035)
--- NOTE | 2023-04-08 08:50 | PC.NURSE ---
patient's o2 saturation dropped down to 88% while sitting bed. He did not appear or report that he was in resp distress but did report head fog. He was placed on 2l NC and his sat came up to 94% while reporting an improvement of head fog
[2023-04-08 08:53] LABS: Bacteria Urine None Seen; Culture Indicated Urine Cult Not Indicated; RBC Urine None Seen (0-5/HPF); Squamous Epithelial Cell Urine None Seen (0-5/HPF); WBC Urine None Seen (0-5/HPF)
[2023-04-08] MEDS: ALBUTEROL/IPRATROPIUM 3 ML AMPUL INH (08:59)
--- NOTE | 2023-04-08 09:23 | PC.NURSE ---
patient states that he feels. his o2 was reduced to 1 L NC and is 93%
[2023-04-08 09:24] LABS: Reflexed Lactate in 2 Hours Y
[2023-04-08 09:51] LABS: Lactate 2HR (Lactic Acid Rflx) 0.9 mmol/L (0.7-2.1)
--- NOTE | 2023-04-08 09:52 | PC.NURSE ---
patient's oxygen was turned off to trial his o2 needs.
--- NOTE | 2023-04-08 10:17 | PC.NURSE ---
patient was given an ambulation trial off oxygen and his O2 saturation fluctuated from 89 to 93% but spent a majority of his walk around 91%. He reported that he is feeling better.
--- NOTE | 2023-04-08 10:40 | PC.NURSE ---
was taken off oxygen and his saturation is holding around 93%
--- NOTE | 2023-04-08 11:05 | PC.NURSE ---
Patient went down to 90% on RA. Provider made aware. He was then placed on 2L NC as per provider order.
--- NOTE | 2023-04-08 13:12 | PC.NURSE ---
Addendum entered by Zulma Mott R.N. 04/08/23 14:29: Resting comfortably at this time and denies discomfort. Original Note: Patients breath sounds are clear upon auscultation. His skin is clear, accept patient has redness on the corners of his big toe. Area's are not open, they are blanchable. He denies pain and is now eating lunch.
--- NOTE | 2023-04-08 14:42 | P.HP_ITS ---
History of Present Illness History of Present Illness Date Patient Seen: 04/08/23 Time Patient Seen: 14:00 Chief complaint: vertigo, dehydrated, dizzy, bodyaches Narrative: This is a 58 M with PMH of psoriatic arthritis on embrel and methotrexate, depression and anxiety (former ), and HTN who presented with worsening dizziness over the past two days and myalgias. He denies overt fever or chills, cough, but has felt a bit more short of breath. He describes it more of a difficulty / pain with deep inspiration on the top part of his sternum. He denies new rashes, abdominal pain, dysuria, urinary frequency. He has a chronic posterior headache that has returned since this morning as well, though it is a bit better now after therapies in the ER. He denies neck stiffness, vision changes, palpitations, focal numbness or weakness. He has had pseudomonal bacteremia twice in the past, though most recent was still many years ago. In the emergency room, he was febrile to 102.6, with soft but not overtly hypotensive blood pressures, and he was hypoxic with an O2 saturation on room air of 88 percent. Show labs were notable for a normal WBC count, mild hyponatremia with sodium of 134, but the remainder of his labs are unremarkable. Chest x-ray showed cyst was unremarkable. Respiratory panel was negative. Patient was admitted for further management of pneumonia with acute respiratory failure with hypoxia. [facility] Medical History Depression Headache HTN (hypertension) Psoriasis Psoriatic arthritis Sleep apnea Surgical History (Updated 04/08/23 @ 15:10 by Gregg Leigh DO) H/O foot surgery History of lumbar surgery Social History household members: spouse Smoking Status: Former smoker alcohol intake: current Meds Home Medications and Allergies Home Medications Medication Instructions Recorded Confirmed Type etanercept 50 mg/mL (1 mL) 50 mg SUBCUT 2XW 09/22/22 04/08/23 History subcutaneous syringe (Enbrel) lisinopril 20 mg tablet 20 mg PO DAILY 09/22/22 04/08/23 History methotrexate sodium 2.5 mg tablet 15 mg PO QWEEK 09/22/22 04/08/23 History omeprazole 40 mg capsule,delayed 40 mg PO DAILY 09/22/22 04/08/23 History release sertraline 100 mg tablet 100 mg PO DAILY 09/22/22 04/08/23 History Allergies Allergy/AdvReac Type Severity Reaction Status Date / Time oxycodone [From Percocet] Allergy Unknown fever, Verified 09/22/22 06:43 nausea Review of Systems Review of Systems Narrative: All other systems reviewed with the patient and are negative unless otherwise stated. Exam Vital Signs (past 8 hours): - 04/08/23 06:55 04/08/23 07:26 04/08/23 07:34 Temperature 102.6 F H 102.1 F H Pulse Rate 110 H 96 H Respiratory Rate 40 H 35 H Blood Pressure 112/76 Pulse Oximetry 96 96 Oxygen Delivery Method Room Air Room Air Oxygen Flow Rate 04/08/23 07:16 04/08/23 07:17 04/08/23 07:17 Temperature Pulse Rate 105 H 103 H Respiratory Rate 17 15 Blood Pressure 125/80 Pulse Oximetry 96 96 Oxygen Delivery Method Oxygen Flow Rate 04/08/23 07:30 04/08/23 07:30 04/08/23 08:31 Temperature 101.1 F H Pulse Rate 101 H Respiratory Rate 28 H Blood Pressure 135/78 Pulse Oximetry 95 Oxygen Delivery Method Oxygen Flow Rate 04/08/23 08:36 04/08/23 08:00 04/08/23 08:00 Temperature Pulse Rate 95 H Respiratory Rate 17 Blood Pressure 127/75 Pulse Oximetry 94 97 Oxygen Delivery Method Nasal Cannula Oxygen Flow Rate 2 04/08/23 08:29 04/08/23 08:30 04/08/23 09:00 Temperature Pulse Rate 95 H 78 Respiratory Rate 22 18 Blood Pressure 115/68 Pulse Oximetry 90 L 95 Oxygen Delivery Method Nasal Cannula Oxygen Flow Rate 2 04/08/23 08:30 04/08/23 09:00 04/08/23 09:00 Temperature Pulse Rate 93 H 84 Respiratory Rate 14 20 Blood Pressure 111/64 Pulse Oximetry 95 94 Oxygen Delivery Method Nasal Cannula Oxygen Flow Rate 2 04/08/23 09:30 04/08/23 09:30 04/08/23 09:35 Temperature Pulse Rate 85 82 Respiratory Rate 24 23 Blood Pressure 102/59 L Pulse Oximetry 94 92 Oxygen Delivery Method Nasal Cannula Oxygen Flow Rate 2 04/08/23 09:40 04/08/23 09:45 04/08/23 09:50 Temperature Pulse Rate 86 80 76 Respiratory Rate 23 22 13 Blood Pressure Pulse Oximetry 93 93 93 Oxygen Delivery Method Nasal Cannula Nasal Cannula Nasal Cannula Oxygen Flow Rate 2 2 2 04/08/23 09:55 04/08/23 10:00 04/08/23 10:00 Temperature Pulse Rate 83 82 Respiratory Rate 11 L 13 Blood Pressure 102/60 Pulse Oximetry 91 90 L Oxygen Delivery Method Room Air Room Air Oxygen Flow Rate 04/08/23 10:11 04/08/23 10:12 04/08/23 10:12 Temperature Pulse Rate 79 78 Respiratory Rate 21 22 Blood Pressure 98/63 Pulse Oximetry 92 92 Oxygen Delivery Method Oxygen Flow Rate 04/08/23 10:15 04/08/23 10:20 04/08/23 10:25 Temperature Pulse Rate 75 76 77 Respiratory Rate 22 23 24 Blood Pressure Pulse Oximetry 92 91 91 Oxygen Delivery Method Oxygen Flow Rate 04/08/23 10:30 04/08/23 10:31 04/08/23 10:31 Temperature Pulse Rate 80 79 Respiratory Rate 17 16 Blood Pressure 123/82 Pulse Oximetry 91 91 Oxygen Delivery Method Oxygen Flow Rate 04/08/23 10:35 04/08/23 10:40 04/08/23 10:45 Temperature Pulse Rate 79 74 75 Respiratory Rate 23 23 22 Blood Pressure Pulse Oximetry 92 91 90 L Oxygen Delivery Method Oxygen Flow Rate 04/08/23 10:50 04/08/23 10:55 04/08/23 11:00 Temperature Pulse Rate 76 73 Respiratory Rate 22 23 Blood Pressure 107/60 Pulse Oximetry 90 L 90 L Oxygen Delivery Method Oxygen Flow Rate 04/08/23 11:00 04/08/23 11:15 04/08/23 12:00 Temperature 97.2 F L Pulse Rate 73 69 68 Respiratory Rate 21 19 20 Blood Pressure 107/59 L Pulse Oximetry 90 L 95 99 Oxygen Delivery Method Nasal Cannula Oxygen Flow Rate 2 2 Oxygen Delivery Method Nasal Cannula Oxygen Flow Rate 2 Narrative Exam Narrative: General:? Patient is well developed and well nourished, in no distress at this time. HEENT:? Normocephalic, atraumatic, extraocular muscles intact, oral pharynx is clear and mucous membranes are moist. Neck: supple and symmetric, trachea is midline, no cervical adenopathy. Negative for JVD Chest:? Normal AP diameter and contour without kyphoscoliosis, no tachypnea, equal chest rise bilaterally. Lungs:? CTA b/l no wheezing rhonchi or rales. Cardio:?RRR no m/r/g. Abdomen: S NT ND. No CVA tenderness. Musculoskeletal:? Muscle strength and tone are equal within normal limits, no deformity. Extremities: No edema or joint effusions. No cyanosis or clubbing. Skin:? Pale,? Warm to touch,dry and intact without rashes, ulcerations or petechiae.? Neuro:? Alert and orientated x3,? sensation to touch intact in all extremities, no gross deficits noted of cranial nerves. Psych:? Patient has a well-kept appearance, appropriate affect, mental status attitude thought context and judgment are appropriate for age. Objective Labs 04/08/23 07:19 04/08/23 07:19 Labs: Laboratory Results - last 24 hr 04/08/23 04/08/23 04/08/23 07:19 07:19 07:19 WBC 9.8 RBC 5.00 Hgb 15.2 Hct 43.6 MCV 87.2 MCH 30.3 MCHC 34.8 RDW 14.7 Plt Count 214 Neut % (Auto) 80.1 H Lymph % (Auto) 5.3 L [place] % (Auto) 11.2 Eos % (Auto) 3.1 Baso % (Auto) 0.3 Neut # (Auto) 7900 H Lymph # (Auto) 500 L [place] # (Auto) 1100 H Eos # (Auto) 300 Baso # (Auto) 0 PT 13.2 H INR 1.2 APTT Sodium 134 L Potassium 3.8 Chloride 99 Carbon Dioxide 24 BUN 9 Creatinine 1.09 Estimated GFR > 60 BUN/Creatinine Ratio 8.3 Glucose 132 H Lactate Calcium 8.5 Total Bilirubin 0.8 AST 38 ALT 47 Alkaline Phosphatase 62 Total Creatine Kinase 131 Troponin I < 0.012 Total Protein 7.5 Albumin 4.5 Globulin 3.0 Albumin/Globulin Ratio 1.5 Procalcitonin 0.08 Urine Color Urine Appearance Urine pH Ur Specific [place] Urine Protein Urine Glucose (UA) Urine Ketones Urine Occult Blood Urine Nitrate Urine Bilirubin Urine Urobilinogen Ur Leukocyte Esterase Urine RBC Urine WBC Ur Squamous Epith Cells Urine Bacteria Ur Culture Indicated? Chlamy pneumoniae PCR Adenovirus (PCR) B. pertussis DNA (PCR) B.parapertussis DNA PCR Coronavirus OC43 (PCR) Coronavirus HKU1 (PCR) Coronavirus 229E (PCR) SARS-CoV-2 (PCR) Coronavirus NL63 (PCR) Human Metapneumovir PCR Influenza Type A (PCR) Influenza Type B (PCR) M. pneumoniae (PCR) Parainfluenza 1 (PCR) Parainfluenza 2 (PCR) Parainfluenza 3 (PCR) Parainfluenza 4 (PCR) RSV (PCR) Entero/Rhino (PCR) 04/08/23 04/08/23 04/08/23 07:19 07:19 07:19 WBC RBC Hgb Hct MCV MCH MCHC RDW Plt Count Neut % (Auto) Lymph % (Auto) [place] % (Auto) Eos % (Auto) Baso % (Auto) Neut # (Auto) Lymph # (Auto) [place] # (Auto) Eos # (Auto) Baso # (Auto) PT INR APTT 28 Sodium Potassium Chloride Carbon Dioxide BUN Creatinine Estimated GFR BUN/Creatinine Ratio Glucose Lactate 2.2 H Calcium Total Bilirubin AST ALT Alkaline Phosphatase Total Creatine Kinase Troponin I Total Protein Albumin Globulin Albumin/Globulin Ratio Procalcitonin Urine Color Urine Appearance Urine pH Ur Specific [place] Urine Protein Urine Glucose (UA) Urine Ketones Urine Occult Blood Urine Nitrate Urine Bilirubin Urine Urobilinogen Ur Leukocyte Esterase Urine RBC Urine WBC Ur Squamous Epith Cells Urine Bacteria Ur Culture Indicated? Chlamy pneumoniae PCR Not detected Adenovirus (PCR) Not detected B. pertussis DNA (PCR) Not detected B.parapertussis DNA PCR Not detected Coronavirus OC43 (PCR) Not detected Coronavirus HKU1 (PCR) Not detected Coronavirus 229E (PCR) Not detected SARS-CoV-2 (PCR) Not detected Coronavirus NL63 (PCR) Not detected Human Metapneumovir PCR Not detected Influenza Type A (PCR) Not detected Influenza Type B (PCR) Not detected M. pneumoniae (PCR) Not detected Parainfluenza 1 (PCR) Not detected Parainfluenza 2 (PCR) Not detected Parainfluenza 3 (PCR) Not detected Parainfluenza 4 (PCR) Not detected RSV (PCR) Not detected Entero/Rhino (PCR) Not detected 04/08/23 04/08/23 08:41 09:37 WBC RBC Hgb Hct MCV MCH MCHC RDW Plt Count Neut % (Auto) Lymph % (Auto) [place] % (Auto) Eos % (Auto) Baso % (Auto) Neut # (Auto) Lymph # (Auto) [place] # (Auto) Eos # (Auto) Baso # (Auto) PT INR APTT Sodium Potassium Chloride Carbon Dioxide BUN Creatinine Estimated GFR BUN/Creatinine Ratio Glucose Lactate 0.9 Calcium Total Bilirubin AST ALT Alkaline Phosphatase Total Creatine Kinase Troponin I Total Protein Albumin Globulin Albumin/Globulin Ratio Procalcitonin Urine Color Yellow Urine Appearance Clear Urine pH 7.0 Ur Specific [place] <=1.005 Urine Protein Negative Urine Glucose (UA) Negative Urine Ketones Negative Urine Occult Blood Negative Urine Nitrate Negative Urine Bilirubin Negative Urine Urobilinogen 1.0 Ur Leukocyte Esterase Negative Urine RBC None seen Urine WBC None seen Ur Squamous Epith Cells None seen Urine Bacteria None seen Ur Culture Indicated? Cult not indicated Chlamy pneumoniae PCR Adenovirus (PCR) B. pertussis DNA (PCR) B.parapertussis DNA PCR Coronavirus OC43 (PCR) Coronavirus HKU1 (PCR) Coronavirus 229E (PCR) SARS-CoV-2 (PCR) Coronavirus NL63 (PCR) Human Metapneumovir PCR Influenza Type A (PCR) Influenza Type B (PCR) M. pneumoniae (PCR) Parainfluenza 1 (PCR) Parainfluenza 2 (PCR) Parainfluenza 3 (PCR) Parainfluenza 4 (PCR) RSV (PCR) Entero/Rhino (PCR) Assessment & Plan Assessment & Plan narrative: 1. Community acquired pneumonia with acute respiratory failure with hypoxia. Rule out sepsis - given history of pseudomonal bacteremia, will cover for this with cefepime 2g q8 hr for now - continue to wean from O2 as tolerated, goal O2 90-96% while on supplemental therapy - consider CT imaging if worsening hypoxia or continued fever. - SOFA score <2, but may be early sepsis - patient clinically appears euvolemic, will hold on additional fluids at this time. He is tolerating a diet. - Respiratory panel is negative. 2. Psoriatic arthritis on immunosuppression therapy - hold enbrel and MTX 3. HTN, chronic - hold lisinopril in setting of low-normal BP and possible sepsis noted above. 4. Anxiety and depression - continue sertraline Code: Full, surrogate is patient's spouse I have utilized all available immediate resources to obtain, update, or review the patient's current medications. Additional history obtained via ER provider. Discussed plan of care with patient. I have reviewed patient's labs and imaging and recent documentation personally. Dispo: Admitted inpatient, anticipated length of stay is beyond two midnights. Quality VTE Deep Vein Thrombosis/Pulmonary Embolism Present on Admission: No MIPS - Admit I confirm the patient?s Advance Care Plan is present, Code status is documented, Surrogate decision maker is in patient?s record [If Yes, STOP here]: Yes
[2023-04-08] MEDS: CEFEPIME 2 GM in SODIUM CHLORIDE 0.9% 100 ML IV ×2 (15:40→21:43)
[2023-04-08] MEDS: SODIUM CHLORIDE 0.9% 250 ML 21 ML IV (16:10)
[2023-04-08] MEDS: ACETAMINOPHEN 325 MG TABLET 650 MG PO (20:13)
[2023-04-08] MEDS: LORazepam 0.5 MG TABLET PO (20:59)
[2023-04-08] MEDS: SERTRALINE 50 MG TABLET 100 MG PO (20:59)
[2023-04-08] MEDS: HYDROCODONE/ACET 5/325 TABLET 1 TAB PO (21:42)
[2023-04-08] MEDS: IBUPROFEN 600 MG TABLET PO (23:14)
[2023-04-09] VITALS (13 sets, daily range): BP systolic 106–139; BP diastolic 67–85; PULSE 64–120; RESP 16–25; TEMP 36.2–38.2; O2SAT 93–100
[2023-04-09] MEDS: ACETAMINOPHEN 325 MG TABLET 650 MG PO ×4 (02:18→21:55)
[2023-04-09 04:51] LABS: Add Manual Diff / Slide Review NO; Basophils Absolute Auto 100 /uL (0-100); Basophils Percent Auto 1.3 % (0-2); Eosinophils Absolute Auto 400 /uL (0-450); Eosinophils Percent Auto 5.7 % (2-4); Hematocrit 40.2 % (41-53); Lymphocytes Absolute Auto 600 /uL (1100-4500); Lymphocytes Percent Auto 9.2 % (25-40); Mean Corpuscular HGB Conc 34.8 % (30-36); Mean Corpuscular Hemoglobin 30.3 PG (26-34); Mean Corpuscular Volume 87.1 fL (80-100); Monocytes Absolute Auto 1200 /uL (0-900); Monocytes Percent Auto 16.8 % (3-14); Neutrophils Absolute Auto 4700 /uL (1500-7000); Platelet Count 192 X10^3/uL (150-400); Red Blood Cell Count 4.61 X10^6/uL (4.5-5.9); Red Cell Distribution Width 14.7 % (11.6-14.8)
[2023-04-09 05:03] LABS: BUN Creatinine Ratio 9.2 (6-22); Blood Urea Nitrogen 11 mg/dL (9-20); Calcium 8.2 mg/dL (8.4-10.2); Carbon Dioxide 28 mmol/L (22-32); Chloride 104 mmol/L (98-107); Estimated Glomerular Filt Rate > 60 mL/min (>60); Glucose 120 mg/dL (70-100); HEMOLYSIS 16 (0-50); Potassium 4.2 mmol/L (3.4-5.1); Sodium 137 mmol/L (137-145)
[2023-04-09] MEDS: IBUPROFEN 600 MG TABLET PO ×2 (05:52→17:56)
[2023-04-09] MEDS: CEFEPIME 2 GM in SODIUM CHLORIDE 0.9% 100 ML IV ×3 (05:52→21:54)
[2023-04-09] MEDS: PANTOPRAZOLE DR 40 MG TABLET PO (06:06)
--- NOTE | 2023-04-09 09:11 | CM.DANOTE ---
Reviewed chart with existing information, and patient discussed in multidisciplinary rounds this morning. Met with patient and introduced to care coordination and discharge planning. They agree to assessment. Pt is a 58 year old admitted for pneumonia, hx psoriasis on immunosuppression. States he is not normally short of breath or on 02. States he is usually independent and still works as a massage therapist. Confirms his truck is in parking lot and he can drive himself home to [place]. DCP is home with established primary care PCP: Issa Tobin last seen about 6 months ago, and [facility] D[facility]: None Payer: Medicare, Barriers: none foreseen Corina Melvin RN, CM Discharge Planning/Care Management CM Discharge Assessment Start: 04/09/23 09:03 Freq: Status: Active Protocol: Document 04/09/23 09:03 DAGMAR (Rec: 04/09/23 09:06 BQ [id number]) Discharge Planning Assessment Assigned Roadway Designer Corina Melvin RN, CM Advance Directives? No History Provided By Patient,Medical Record Has Patient been admitted in last 30 No days? Prior Living Arrangements House Household Members spouse Type of transporation used prior to Drives own vehicle admit Independent with ADL's Yes Is patient alert and oriented? 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 # of Roadway Designer Review Status In Process Next Review Type Continued Stay Review
[2023-04-09] MEDS: AZITHROMYCIN 250 MG TABLET 500 MG PO (09:21)
[2023-04-09] MEDS: SERTRALINE 50 MG TABLET 100 MG PO (09:21)
[2023-04-09] MEDS: LORazepam 0.5 MG TABLET PO ×2 (09:21→19:57)
[2023-04-09] MEDS: guaiFENesin ER 600 MG TAB PO ×2 (11:04→19:57)
--- NOTE | 2023-04-09 15:28 | P.PN_ITS ---
Subjective Subjective Interval history: BCx no growth at 24 hours. Still on 2L NC. Patient overall feels much better than when he first arrived. Had temp up to 100.4F overnight. Exam Vital Signs (past 8 hours): - 04/09/23 09:24 04/09/23 12:00 Temperature 97.1 F L Pulse Rate 64 Respiratory Rate 16 Blood Pressure 107/67 Pulse Oximetry 95 97 Oxygen Delivery Method Nasal Cannula Oxygen Flow Rate 2 Fraction of Inspired Oxygen 28 Fraction of Inspired Oxygen 28 SaO2/FiO2 Ratio 339 Oxygen Delivery Method Nasal Cannula Oxygen Flow Rate 2 Narrative Exam Narrative: General:? Patient is well developed and well nourished, in no distress at this time. HEENT:? Normocephalic, atraumatic, extraocular muscles intact, oral pharynx is clear and mucous membranes are moist. Neck: supple and symmetric, trachea is midline, no cervical adenopathy. Negative for JVD Chest:? Normal AP diameter and contour without kyphoscoliosis, no tachypnea, equal chest rise bilaterally. Lungs:? CTA b/l no wheezing rhonchi or rales. Cardio:?RRR no m/r/g. Abdomen: S NT ND. No CVA tenderness. Musculoskeletal:? Muscle strength and tone are equal within normal limits, no deformity. Extremities: No edema or joint effusions. No cyanosis or clubbing. Skin:? Pale,? Warm to touch,dry and intact without rashes, ulcerations or petechiae.? Neuro:? Alert and orientated x3,? sensation to touch intact in all extremities, no gross deficits noted of cranial nerves. Psych:? Patient has a well-kept appearance, appropriate affect, mental status attitude thought context and judgment are appropriate for age. Objective Labs 04/09/23 04:31 04/09/23 04:31 Labs: Laboratory Results - last 24 hr 04/09/23 04/09/23 04:31 04:31 WBC 7.0 RBC 4.61 Hgb 14.0 Hct 40.2 L MCV 87.1 MCH 30.3 MCHC 34.8 RDW 14.7 Plt Count 192 Neut % (Auto) 67.0 Lymph % (Auto) 9.2 L [place] % (Auto) 16.8 H Eos % (Auto) 5.7 H Baso % (Auto) 1.3 Neut # (Auto) 4700 Lymph # (Auto) 600 L [place] # (Auto) 1200 H Eos # (Auto) 400 Baso # (Auto) 100 Sodium 137 Potassium 4.2 Chloride 104 Carbon Dioxide 28 BUN 11 Creatinine 1.20 Estimated GFR > 60 BUN/Creatinine Ratio 9.2 Glucose 120 H Calcium 8.2 L Magnesium 2.0 PFSH Medical History Depression Headache HTN (hypertension) Psoriasis Psoriatic arthritis Sleep apnea Surgical History (Updated 04/08/23 @ 15:10 by Gregg Leigh DO) H/O foot surgery History of lumbar surgery Social History household members: spouse Smoking Status: Former smoker alcohol intake: current Assessment & Plan Assessment & Plan narrative: 1. Community acquired pneumonia with acute respiratory failure with hypoxia. Ruled out sepsis - given history of pseudomonal bacteremia, will cover for this with cefepime 2g q8 hr for now - continue to wean from O2 as tolerated, goal O2 >90% while on supplemental t herapy - consider CT imaging if worsening hypoxia or continued fever. - SOFA score <2, but may be early sepsis - patient clinically appears euvolemic, will hold on additional fluids at this time. He is tolerating a diet. - Respiratory panel is negative. 2. Psoriatic arthritis on immunosuppression therapy - hold enbrel and MTX 3. HTN, chronic - hold lisinopril in setting of low-normal BP and possible sepsis noted above. 4. Anxiety and depression - continue sertraline Code: Full, surrogate is patient's spouse Dispo: Pending resolution of fevers and improvement hypoxia. Likely 2 more days. Quality VTE Deep Vein Thrombosis/Pulmonary Embolism Present on Admission: No
--- NOTE | 2023-04-09 17:55 | DI.CT.S_ITS ---
PROCEDURE: CT ANGIO CHEST PE PROTOCOL INDICATIONS: hypoxia, pneumonia with ongoing fevers TECHNIQUE: After the administration of intravenous contrast, 2 mm thick sections acquired from the pulmonary apices to the posterior costophrenic angles. 3-dimensional maximum intensity projection (MIP) coronal and sagittal reformats were then acquired through the thorax. For radiation dose reduction, the following was used: automated exposure control, adjustment of mA and/or kV according to patient size. COMPARISON: [facility], CR, XR CHEST 1V, 04/08/2023, 7:13. FINDINGS: Image quality: Excellent. Pulmonary arteries: Pulmonary arteries are normal in size, and demonstrate no intraluminal filling defects to suggest central pulmonary embolism. Lungs and pleura: Multifocal ground-glass opacities throughout the bilateral lungs most predominantly within the bilateral apices with reticular thickening. Additional ground-glass opacities in the peripheral lower lobes and right middle lobe. Mediastinum: Heart size is normal, without pericardial effusion. Diffuse mediastinal lymphadenopathy most prominent within the hilum. Thoracic aorta is normal in caliber and enhancement. Esophagus is normal in caliber, without hiatal hernia. Bones and chest wall: No suspicious bony lesions. Ribs and thoracic spine appear intact throughout. Thyroid gland is unremarkable. No axillary or supraclavicular adenopathy. Abdomen: Visualized upper abdominal solid organs appear normal in the early arterial phase of enhancement. IMPRESSION: No pulmonary embolus. Severe multifocal ground-glass opacities concerning for atypical infection. Mediastinal lymphadenopathy likely reactive. Dictated by: Bryce Crouch M.D. on 04/09/2023 at 17:49 Approved by: Bryce Crouch M.D. on 04/09/2023 at 17:54
--- NOTE | 2023-04-09 18:28 | PC.NURSE ---
0800: alert, oriented. independant w/ mobility to/from bathroom. VS are stable, afebrile. soft b/p. drinking plenty of fluids. DIRECTOR CHILD cough, congestion; order for IS and flutter. requested RT educate on how to use. 1200: tolerating PRN ativan, patient reports fatigue and SOB w/ exertion. continue to encourage IS/flutter. 1600: c/o h/a, PRN ibu/apap given thru the day. 1800: Dr Leblanc notified of patients continued c/o headache. new orders: CT chest & start Vanco tonight. 1829: brought patient to CT. when getting OOB he was very dizzy, almost fell over. encouraged sit EOB before standing. 1844: returned to room. still c/o dizziness. reports a hx of vertigo. encouraged sit and wait a full min before getting OOB thru the NOC. BA on, call light w/in reach.
[2023-04-09] MEDS: VANCOMYCIN 2,000 MG/400 ML PIGGYBACK 125 MG IV (18:40)
[2023-04-09] MEDS: KETOROLAC 30 MG/ML VIAL IV (22:16)
[2023-04-10] VITALS (8 sets, daily range): BP systolic 97–121; BP diastolic 57–76; PULSE 61–98; RESP 17–22; TEMP 36.1–37.3; O2SAT 92–97
[2023-04-10] MEDS: KETOROLAC 30 MG/ML VIAL IV ×3 (04:44→21:35)
[2023-04-10 05:41] LABS: Add Manual Diff / Slide Review NO; Basophils Absolute Auto 100 /uL (0-100); Basophils Percent Auto 0.9 % (0-2); Eosinophils Absolute Auto 500 /uL (0-450); Eosinophils Percent Auto 8.7 % (2-4); Hematocrit 39.7 % (41-53); Lymphocytes Absolute Auto 700 /uL (1100-4500); Lymphocytes Percent Auto 13.4 % (25-40); Mean Corpuscular HGB Conc 35.2 % (30-36); Mean Corpuscular Hemoglobin 30.5 PG (26-34); Mean Corpuscular Volume 86.7 fL (80-100); Monocytes Absolute Auto 900 /uL (0-900); Monocytes Percent Auto 16.5 % (3-14); Neutrophils Absolute Auto 3400 /uL (1500-7000); Neutrophils Percent Auto 60.5 % (50-75); Platelet Count 194 X10^3/uL (150-400); Red Blood Cell Count 4.57 X10^6/uL (4.5-5.9); Red Cell Distribution Width 14.7 % (11.6-14.8); White Blood Cell Count 5.6 X10^3/uL (4.5-11.0)
[2023-04-10 05:48] LABS: BUN Creatinine Ratio 10.3 (6-22); Blood Urea Nitrogen 11 mg/dL (9-20); Calcium 8.7 mg/dL (8.4-10.2); Carbon Dioxide 28 mmol/L (22-32); Chloride 104 mmol/L (98-107); Estimated Glomerular Filt Rate > 60 mL/min (>60); Glucose 105 mg/dL (70-100); HEMOLYSIS < 15 (0-50); Magnesium 2.2 mg/dL (1.6-2.3); Sodium 138 mmol/L (137-145)
[2023-04-10] MEDS: CEFEPIME 2 GM in SODIUM CHLORIDE 0.9% 100 ML IV ×3 (06:25→22:57)
[2023-04-10] MEDS: ENOXAPARIN 40 MG/0.4 ML SYRINGE SUBCUT (09:52)
[2023-04-10] MEDS: ACETAMINOPHEN 325 MG TABLET 650 MG PO ×2 (09:52→16:59)
[2023-04-10] MEDS: DOXYCYCLINE HYCLATE 100 MG TABLET PO ×2 (09:52→21:02)
[2023-04-10] MEDS: SERTRALINE 50 MG TABLET 100 MG PO (09:52)
[2023-04-10] MEDS: guaiFENesin ER 600 MG TAB PO ×2 (09:52→21:02)
[2023-04-10] MEDS: PANTOPRAZOLE DR 40 MG TABLET PO (10:04)
--- NOTE | 2023-04-10 18:47 | PM.PN.1 ---
Subjective Subjective Interval history: Afebrile overnight. Feeling better today. CTA chest without PE but diffuse multifocal ground-glass opacities consistent with severe atypical PNA. Exam Vital Signs (past 8 hours): - 04/10/23 12:00 04/10/23 16:00 Temperature 97.2 F L 97.8 F Pulse Rate 84 95 H Respiratory Rate 17 17 Blood Pressure 107/57 L 117/76 Pulse Oximetry 96 93 Oxygen Flow Rate 2 0 Fraction of Inspired Oxygen 28 SaO2/FiO2 Ratio 328 Oxygen Delivery Method Nasal Cannula Oxygen Flow Rate 0 Narrative Exam Narrative: General:? Patient is well developed and well nourished, in no distress at this time. HEENT:? Normocephalic, atraumatic, extraocular muscles intact, oral pharynx is clear and mucous membranes are moist. Neck: supple and symmetric, trachea is midline, no cervical adenopathy. Negative for JVD Chest:? Normal AP diameter and contour without kyphoscoliosis, no tachypnea, equal chest rise bilaterally. Lungs:? CTA b/l no wheezing rhonchi or rales. Cardio:?RRR no m/r/g. Abdomen: S NT ND. No CVA tenderness. Musculoskeletal:? Muscle strength and tone are equal within normal limits, no deformity. Extremities: No edema or joint effusions. No cyanosis or clubbing. Skin:? Pale,? Warm to touch,dry and intact without rashes, ulcerations or petechiae.? Neuro:? Alert and orientated x3,? sensation to touch intact in all extremities, no gross deficits noted of cranial nerves. Psych:? Patient has a well-kept appearance, appropriate affect, mental status attitude thought context and judgment are appropriate for age. Objective Labs 04/10/23 05:00 04/10/23 05:00 Labs: Laboratory Results - last 24 hr 04/10/23 04/10/23 05:00 05:00 WBC 5.6 RBC 4.57 Hgb 14.0 Hct 39.7 L MCV 86.7 MCH 30.5 MCHC 35.2 RDW 14.7 Plt Count 194 Neut % (Auto) 60.5 Lymph % (Auto) 13.4 L [place] % (Auto) 16.5 H Eos % (Auto) 8.7 H Baso % (Auto) 0.9 Neut # (Auto) 3400 Lymph # (Auto) 700 L [place] # (Auto) 900 Eos # (Auto) 500 H Baso # (Auto) 100 Sodium 138 Potassium 4.0 Chloride 104 Carbon Dioxide 28 BUN 11 Creatinine 1.07 Estimated GFR > 60 BUN/Creatinine Ratio 10.3 Glucose 105 H Calcium 8.7 Magnesium 2.2 PFSH Medical History Depression Headache HTN (hypertension) Psoriasis Psoriatic arthritis Sleep apnea Surgical History (Updated 04/08/23 @ 15:10 by Gregg Leigh DO) H/O foot surgery History of lumbar surgery Social History household members: spouse Smoking Status: Former smoker alcohol intake: current Assessment & Plan Assessment & Plan narrative: 1. Community acquired pneumonia with acute respiratory failure with hypoxia. Ruled out sepsis - given history of pseudomonal bacteremia, will cover for this with cefepime 2g q8 hr for now - continue to wean from O2 as tolerated, goal O2 >90% while on supplemental therapy - consider CT imaging if worsening hypoxia or continued fever. - SOFA score <2, but may be early sepsis - patient clinically appears euvolemic, will hold on additional fluids at this time. He is tolerating a diet. - Respiratory panel is negative. Blood cultures negative. - CTA chest on 04/09 with severe bilateral multifocal ground-glass opacities consistent with atypical PNA - added doxy 100mg BID po for atypical coverage - afebrile on 04/10 - sputum culture ordered but not collected 2. Psoriatic arthritis on immunosuppression therapy - hold enbrel and MTX for now 3. HTN, chronic - hold lisinopril in setting of low-normal BP and possible sepsis noted above. 4. Anxiety and depression - continue sertraline Code: Full, surrogate is patient's spouse Dispo: Pending improvement in hypoxia and PNA. Likely 1-2 more days. Quality VTE Deep Vein Thrombosis/Pulmonary Embolism Present on Admission: No
[2023-04-10] MEDS: LORazepam 0.5 MG TABLET PO (18:52)
[2023-04-10] MEDS: SODIUM CHLORIDE 0.9% FLUSH 10 ML IV ×3 (21:02→22:57)
--- NOTE | 2023-04-10 21:31 | PC.NURSE ---
Patient is alert and oriented. Complains of 8/10 posterior head/neck pain; medicated with scheduled Toradol; ice pack and neck roll provided. Breath sounds with crackles in right LL. Is on oxygen at 3L/min per NC with sat of 92% but desats with minimal activity; on continuous oximetry. Is SOB both at rest and with exertion. Has dry, non-productive cough. HRR but intermittently tachy in low 100's. Denies nausea. BT present and passing flatus. Denies dysuria with urinaion. Has been getting up to bathroom independently. Fall risk score is moderate; discussed need to call for assist if dizzy, lightheaded or weak when getting out of bed and patient verbalizes understanding.
[2023-04-10] MEDS: SODIUM CHLORIDE 0.9% 250 ML 21 ML IV (22:57)
[2023-04-11] VITALS (8 sets, daily range): BP systolic 109–134; BP diastolic 72–84; PULSE 83–98; RESP 18–20; TEMP 36.4–37.6; O2SAT 90–93
[2023-04-11] MEDS: KETOROLAC 30 MG/ML VIAL IV ×4 (04:09→21:47)
[2023-04-11] MEDS: SODIUM CHLORIDE 0.9% FLUSH 10 ML IV ×5 (04:10→22:49)
[2023-04-11 05:12] LABS: Add Manual Diff / Slide Review NO; Basophils Absolute Auto 100 /uL (0-100); Eosinophils Absolute Auto 600 /uL (0-450); Eosinophils Percent Auto 9.6 % (2-4); Hematocrit 37.3 % (41-53); Hemoglobin 13.1 g/dL (13.5-17.5); Lymphocytes Absolute Auto 1200 /uL (1100-4500); Lymphocytes Percent Auto 21.4 % (25-40); Mean Corpuscular HGB Conc 35.2 % (30-36); Mean Corpuscular Hemoglobin 29.9 PG (26-34); Mean Corpuscular Volume 85.1 fL (80-100); Monocytes Absolute Auto 900 /uL (0-900); Monocytes Percent Auto 16.4 % (3-14); Neutrophils Absolute Auto 3000 /uL (1500-7000); Neutrophils Percent Auto 51.6 % (50-75); Platelet Count 222 X10^3/uL (150-400); Red Blood Cell Count 4.38 X10^6/uL (4.5-5.9); Red Cell Distribution Width 14.8 % (11.6-14.8); White Blood Cell Count 5.7 X10^3/uL (4.5-11.0)
[2023-04-11 05:29] LABS: BUN Creatinine Ratio 11.7 (6-22); Blood Urea Nitrogen 11 mg/dL (9-20); Calcium 8.2 mg/dL (8.4-10.2); Carbon Dioxide 24 mmol/L (22-32); Chloride 105 mmol/L (98-107); Estimated Glomerular Filt Rate > 60 mL/min (>60); Glucose 112 mg/dL (70-100); HEMOLYSIS < 15 (0-50); Magnesium 1.9 mg/dL (1.6-2.3); Potassium 3.7 mmol/L (3.4-5.1); Sodium 135 mmol/L (137-145)
[2023-04-11] MEDS: CEFEPIME 2 GM in SODIUM CHLORIDE 0.9% 100 ML IV ×3 (06:48→22:48)
[2023-04-11] MEDS: PANTOPRAZOLE DR 40 MG TABLET PO (06:48)
[2023-04-11] MEDS: ENOXAPARIN 40 MG/0.4 ML SYRINGE SUBCUT (08:56)
[2023-04-11] MEDS: DOXYCYCLINE HYCLATE 100 MG TABLET PO ×2 (08:56→21:47)
[2023-04-11] MEDS: guaiFENesin ER 600 MG TAB PO ×2 (08:56→21:47)
[2023-04-11] MEDS: SERTRALINE 50 MG TABLET 100 MG PO (08:56)
[2023-04-11] MEDS: ONDANSETRON 4 MG ODT PO (09:49)
[2023-04-11] MEDS: VANCOMYCIN 1,250 MG/250 ML PIGGYBACK 250 MG IV ×2 (11:16→23:35)
[2023-04-11 12:07] LABS: MRSA (Nasal) PCR Not Detected (Not Detect)
--- NOTE | 2023-04-11 17:41 | PM.PN.1 ---
Subjective Subjective Date Patient Seen: 04/11/23 Time Patient Seen: 08:00 Interval history: He is still short of breath. He is still requiring oxygen for desaturation Exam Vital Signs (past 8 hours): - 04/11/23 11:53 04/11/23 15:31 Temperature 97.9 F 98.9 F Pulse Rate 83 91 H Respiratory Rate 18 18 Blood Pressure 116/78 134/82 Pulse Oximetry 92 90 L Oxygen Flow Rate 3 3 Fraction of Inspired Oxygen 32 SaO2/FiO2 Ratio 284 Oxygen Delivery Method Nasal Cannula Oxygen Flow Rate 3 Narrative Exam Narrative: General:?no acute distress Lungs:?clear bilaterally Cardio:?regular rate and rhythm Abdomen: soft, nontender Objective Labs 04/11/23 04:37 04/11/23 04:37 Labs: Laboratory Results - last 24 hr 04/11/23 04/11/23 04/11/23 04:37 04:37 10:50 WBC 5.7 RBC 4.38 L Hgb 13.1 L Hct 37.3 L MCV 85.1 MCH 29.9 MCHC 35.2 RDW 14.8 Plt Count 222 Neut % (Auto) 51.6 Lymph % (Auto) 21.4 L [place] % (Auto) 16.4 H Eos % (Auto) 9.6 H Baso % (Auto) 1.0 Neut # (Auto) 3000 Lymph # (Auto) 1200 [place] # (Auto) 900 Eos # (Auto) 600 H Baso # (Auto) 100 Sodium 135 L Potassium 3.7 Chloride 105 Carbon Dioxide 24 BUN 11 Creatinine 0.94 Estimated GFR > 60 BUN/Creatinine Ratio 11.7 Glucose 112 H Calcium 8.2 L Magnesium 1.9 Nasal Screen MRSA (PCR) Not detected [facility] Medical History Depression Headache HTN (hypertension) Psoriasis Psoriatic arthritis Sleep apnea Surgical History (Updated 04/08/23 @ 15:10 by Gregg Leigh DO) H/O foot surgery History of lumbar surgery Social History household members: spouse Smoking Status: Former smoker alcohol intake: current Assessment & Plan Assessment & Plan narrative: 1. Community acquired pneumonia with acute respiratory failure with hypoxia. Ruled out sepsis - given history of pseudomonal bacteremia, will cover for this with cefepime 2g q8 hr for now - continue to wean from O2 as tolerated, goal O2 >90% while on supplemental therapy - Respiratory panel is negative. Blood cultures negative. - CTA chest on 04/09 with severe bilateral multifocal ground-glass opacities consistent with atypical PNA - doxy 100mg BID po for atypical coverage - afebrile on 04/10 - sputum culture ordered but not collected - wean oxygen as able 2. Psoriatic arthritis on immunosuppression therapy - hold enbrel and MTX for now 3. HTN, chronic - hold lisinopril in setting of low-normal BP and possible sepsis noted above. 4. Anxiety and depression - continue sertraline Code: Full, surrogate is patient's spouse Quality VTE Deep Vein Thrombosis/Pulmonary Embolism Present on Admission: No
[2023-04-11] MEDS: SODIUM CHLORIDE 0.9% 250 ML 21 ML IV (22:48)
[2023-04-12] VITALS (7 sets, daily range): BP systolic 108–133; BP diastolic 72–87; PULSE 72–96; RESP 16–18; TEMP 36.1–37.1; O2SAT 90–96
--- NOTE | 2023-04-12 03:25 | PC.NURSE ---
Patient is alert and oriented. Complained earlier, again, of posterior head/neck pain which is chronic; was medicated with scheduled Toradol and pain decreased to 3/10 and is currently asleep. Still SOB with exertion. Remains on oxygen and was on 3L/min per NC at shift change with sat of 91% but when asleep was mouth breathing and sat dropping to 89% so O2 was increased and RT contacted; patient is now on oxygen at 6L/min as reportedly has hx of sleep apnea and sat is currently at 94%; on continuous oximetry. Does have intermittent cough which has been non-productive. HRR. Denies nausea. BT present and is passing flatus but has had no bowel movement since 04/08; declined intervention. Voiding per urinal; denied dysuria. Is able to move himself in bed. Up to bathroom with SBA. Fall risk score is moderate but patient calls appropriately for assistance so alarm is not currently activated.
[2023-04-12] MEDS: SODIUM CHLORIDE 0.9% FLUSH 10 ML IV ×5 (04:34→21:21)
[2023-04-12] MEDS: KETOROLAC 30 MG/ML VIAL IV ×4 (04:34→21:24)
[2023-04-12 05:25] LABS: Hematocrit 36.5 % (41-53); Hemoglobin 12.8 g/dL (13.5-17.5); Mean Corpuscular HGB Conc 35.1 % (30-36); Mean Corpuscular Hemoglobin 29.9 PG (26-34); Mean Corpuscular Volume 85.4 fL (80-100); Platelet Count 259 X10^3/uL (150-400); Red Blood Cell Count 4.27 X10^6/uL (4.5-5.9); Red Cell Distribution Width 14.6 % (11.6-14.8); White Blood Cell Count 6.5 X10^3/uL (4.5-11.0)
[2023-04-12 05:35] LABS: BUN Creatinine Ratio 13.3 (6-22); Blood Urea Nitrogen 12 mg/dL (9-20); Calcium 8.6 mg/dL (8.4-10.2); Carbon Dioxide 26 mmol/L (22-32); Chloride 106 mmol/L (98-107); Estimated Glomerular Filt Rate > 60 mL/min (>60); Glucose 104 mg/dL (70-100); HEMOLYSIS < 15 (0-50); Potassium 3.9 mmol/L (3.4-5.1); Sodium 138 mmol/L (137-145)
[2023-04-12] MEDS: CEFEPIME 2 GM in SODIUM CHLORIDE 0.9% 100 ML IV ×3 (06:34→21:20)
[2023-04-12] MEDS: PANTOPRAZOLE DR 40 MG TABLET PO (06:34)
[2023-04-12] MEDS: SERTRALINE 50 MG TABLET 100 MG PO (09:35)
[2023-04-12] MEDS: DOXYCYCLINE HYCLATE 100 MG TABLET PO ×2 (09:35→21:20)
[2023-04-12] MEDS: ENOXAPARIN 40 MG/0.4 ML SYRINGE SUBCUT (09:35)
[2023-04-12] MEDS: guaiFENesin ER 600 MG TAB PO ×2 (09:35→21:20)
[2023-04-12] MEDS: VANCOMYCIN 1,250 MG/250 ML PIGGYBACK 250 MG IV ×2 (10:59→22:01)
--- NOTE | 2023-04-12 14:57 | CM.DPC ---
DCP Cont: Per MD and RN, pt with increased O2 needs and currently on 6LO2 and still receiving IV-Abx and not medically stable for discharge at this time. Plan: SW to follow to confirm safe plan of d/c home via own POV in parking lot and any further identified discharge planning needs. TODD Ledesma
--- NOTE | 2023-04-12 15:05 | P.PN_ITS ---
Subjective Subjective Date Patient Seen: 04/12/23 Time Patient Seen: 08:00 Interval history: He appears short of breath. Attempted to wean down oxygen to 2L but he desat to 80s. He is not coughing much. Exam Vital Signs (past 8 hours): - 04/12/23 08:58 04/12/23 09:42 04/12/23 14:26 Temperature 98.7 F 97.9 F Pulse Rate 72 83 88 Respiratory Rate 17 16 16 Blood Pressure 108/78 115/80 Pulse Oximetry 95 94 96 Oxygen Delivery Method Nasal Cannula Oxygen Flow Rate 6 4 0 Fraction of Inspired Oxygen 36 SaO2/FiO2 Ratio 258 Oxygen Delivery Method Nasal Cannula Oxygen Flow Rate 0 Narrative Exam Narrative: General:?no acute distress Lungs:?clear bilaterally Cardio:?regular rate and rhythm Abdomen: soft, nontender Objective Labs 04/12/23 04:41 04/12/23 04:41 Labs: Laboratory Results - last 24 hr 04/12/23 04/12/23 04:41 04:41 WBC 6.5 RBC 4.27 L Hgb 12.8 L Hct 36.5 L MCV 85.4 MCH 29.9 MCHC 35.1 RDW 14.6 Plt Count 259 Sodium 138 Potassium 3.9 Chloride 106 Carbon Dioxide 26 BUN 12 Creatinine 0.90 Estimated GFR > 60 BUN/Creatinine Ratio 13.3 Glucose 104 H Calcium 8.6 PFSH Medical History Depression Headache HTN (hypertension) Psoriasis Psoriatic arthritis Sleep apnea Surgical History (Updated 04/08/23 @ 15:10 by Gregg Leigh DO) H/O foot surgery History of lumbar surgery Social History household members: spouse Smoking Status: Former smoker alcohol intake: current Assessment & Plan Assessment & Plan narrative: 1. Acute respiratory failure secondary to pneumonia vs pneumonitis -initial concern was for pneumonia -was treated with vanc, cefepime, doxy with today being day 5 of treatment -no leukocytososis, normal procal -CTA chest on 04/09 with severe bilateral multifocal ground-glass opacities consistent with atypical PNA -no significant improvement in oxygen requirement with treatment -given immunosuppression and methotrexate skilled nursing treatment have some concern for atypical infection vs pneumonitis -appreciate pulm consult -send beta-glucan, aspergillus antigen -start methylpred 60mg IV daily -plan for bronch tomorrow, NPO after midnight 2. Psoriatic arthritis on immunosuppression therapy - hold enbrel and MTX for now 3. HTN, chronic - hold lisinopril in setting of low-normal BP 4. Anxiety and depression - continue sertraline Code: Full, surrogate is patient's spouse Quality VTE Deep Vein Thrombosis/Pulmonary Embolism Present on Admission: No
[2023-04-12] MEDS: ACETAMINOPHEN 325 MG TABLET 650 MG PO (15:37)
--- NOTE | 2023-04-12 16:50 | PM.CN ---
History of Present Illness Consult details Date Patient Seen: 04/12/23 Time Patient Seen: 16:58 Chief complaint: vertigo, dehydrated, dizzy, bodyaches Reason for consult: bilateral pulmonary infiltrates in immunosuppressed patient Requesting provider: Sergo Harmon Narrative: Dear Dr. Sergo Harmon, I had the pleasure of seeing your patient Mr. Connor aamdo who is a pleasant 58-year-old male with a history of psoriatic arthritis on Enbrel and methotrexate, depression and anxiety, hypertension who was admitted on 04/08/2023 for acute hypoxemic respiratory failure thought initially due to community-acquired pneumonia who now is being re-evaluated for other possible etiologies given his persistent hypoxemic respiratory failure despite antibiotic therapy. Interestingly he states that his went to [place] to visit her sick with COVID-19 infection in the hospital. She returned back and the patient developed flu-like symptoms with myalgias, malaise, chills, fevers starting 8/10 associated with some head congestion. He took some Excedrin and transiently felt improved but then it were often he worsened. Presented to the ED the next day. He was found to have fever to 102.6 with hypoxemia, mild hyponatremia, chest x-ray was reportedly unremarkable. Viral panel was negative for COVID-19 as well as other viral infections. Interestingly his labs on admission showed leukopenia and monocytosis and he has had progressive peripheral eosinophilia with an AEC of 300 now increasing to 600. Procalcitonin was less than 0.5. CT angiogram of the chest was checked the day after admission on 04/09 showing confluent GGO s with interlobular and interlobular septal thickening in a patchy distribution that was peribronchovascular with peripheral sparing affecting the upper lobes more than the lower lobes. There was no evidence of PE however he did have shotty adenopathy bilaterally. He remains on 4 L nasal cannula so we were consulted today 04/12 for further evaluation. Patient admits he has had Pseudomonas infections in the past. He does notice that he does break out with hives and other rashes due to unclear environmental exposure. He has been on Enbrel and methotrexate for many years followed at the [place]. Meds Home Medications and Allergies Home Medications Medication Instructions Recorded Confirmed Type etanercept 50 mg/mL (1 mL) 50 mg SUBCUT 2XW 09/22/22 04/08/23 History subcutaneous syringe (Enbrel) lisinopril 20 mg tablet 20 mg PO DAILY 09/22/22 04/08/23 History methotrexate sodium 2.5 mg tablet 15 mg PO QWEEK 09/22/22 04/08/23 History omeprazole 40 mg capsule,delayed 40 mg PO DAILY 09/22/22 04/08/23 History release sertraline 100 mg tablet 100 mg PO DAILY 09/22/22 04/08/23 History Allergies Allergy/AdvReac Type Severity Reaction Status Date / Time oxycodone [From Percocet] Allergy Unknown fever, Verified 09/22/22 06:43 nausea Exam Vital Signs (past 8 hours): - 04/12/23 08:58 04/12/23 09:42 04/12/23 14:26 Temperature 98.7 F 97.9 F Pulse Rate 72 83 88 Respiratory Rate 17 16 16 Blood Pressure 108/78 115/80 Pulse Oximetry 95 94 96 Oxygen Delivery Method Nasal Cannula Oxygen Flow Rate 6 4 0 Fraction of Inspired Oxygen 36 SaO2/FiO2 Ratio 258 Oxygen Delivery Method Nasal Cannula Oxygen Flow Rate 0 Narrative Exam Narrative: Middle-aged male lying in hospital bed, pleasant cooperative in no distress, mildly diaphoretic Const General: cooperative Nutritional Appearance: average body habitus HENDE Head: normal to inspection Eyes General: appearance normal, both eyes and all related structures Chest Chest: normal inspection of the chest Resp Effort & Inspection: normal respiratory effort and able to speak in complete sentences Auscultation: clear to auscultation bilaterally Skin General: no rashes or lesions noted Other: Mildly diaphoretic Neuro General: patient alert, patient awake and patient oriented x3 Extrem General: normal to inspection Psych Appearance: grossly normal Objective Imaging CT scan - chest: My impression: I personally reviewed CT angiogram of the chest from 04/09/2023 showing confluent GGOs with interlobular and interlobular septal thickening in a patchy distribution that was peribronchovascular with peripheral sparing affecting the upper lobes more than the lower lobes Labs 04/12/23 04:41 04/12/23 04:41 Labs: Laboratory Results - last 24 hr 04/12/23 04/12/23 04:41 04:41 WBC 6.5 RBC 4.27 L Hgb 12.8 L Hct 36.5 L MCV 85.4 MCH 29.9 MCHC 35.1 RDW 14.6 Plt Count 259 Sodium 138 Potassium 3.9 Chloride 106 Carbon Dioxide 26 BUN 12 Creatinine 0.90 Estimated GFR > 60 BUN/Creatinine Ratio 13.3 Glucose 104 H Calcium 8.6 I personally reviewed procalcitonin less than 0.5 Blood cultures no growth to date Respiratory viral panel negative Leukopenia Peripherally eosinophilia [facility] Medical History Depression Headache HTN (hypertension) Psoriasis Psoriatic arthritis Sleep apnea Surgical History H/O foot surgery History of lumbar surgery Social History household members: spouse Tobacco & Substance Use Smoking Status: Former smoker alcohol intake: current Assessment & Plan Assessment and plan (1) Pneumonia: Problem details: Acute hypoxemic respiratory failure due to pneumonia with likely superimposed ILD organizing pneumonia less likely AEP or opportunistic infection such as PCP pneumonia Qualifiers: Pneumonia type: due to unspecified organism Laterality: bilateral Lung location: unspecified part of lung Qualified Code(s): J18.9 - Pneumonia, unspecified organism Status: Acute Assessment & Plan narrative: Patient has acute hypoxemic respiratory failure in the setting of immunosuppressed status on Enbrel and methotrexate with bilateral pulmonary infiltrates that are peribronchovascular in the setting of symptoms beginning less than 1 week ago and rapidly progressing without improvement with treatment with community-acquired pneumonia, negative procalcitonin, leukopenia and exposure from his who traveled to [place] to visit her father with COVID-19 infection. Though his viral panel is negative his symptoms of myalgia, fatigue, chills, fever is most consistent with a viral infection however he may have a superimposed process. Interestingly he did have leukopenia and now progressive eosinophilia which may be a red vázquez in his pattern is most consistent with an organizing pneumonia process secondary to viral infection. Less likely this can be seen in methotrexate induced pneumonitis however for this rapidly developed on last week after sick contact would be highly unlikely. The other differentials include acute eosinophilic pneumonia though I think eosinophilia would be higher on presentation rather than escalating while hospitalized which is more likely related to the medication effect than an actual adverse reaction or allergy. The other differential include PCP pneumonia for which he is at risk on dual immunosuppression not on prophylaxis however again the rapid development does not fit with the time course of few weeks of indolent symptoms typical for PCP pneumonia. I recommend -hold immunosuppression enbrel and MTX -start prednisone 1 milligram/kilogram per day up to 60 mg daily -bronchoscopy with BAL tomorrow 04/13 to rule out atypical infection; please make patient NPO at midnight (timing TBD per OR), discussed with patient and he is in agreement to proceed -send BAL studies to rule out atypical infection NOT just respiratory culture, AFB culture, fungal culture BUT ADD viral PCR panel of BAL fluid, pneumocystis PCR of BAL fluid sent to , aspergillus galactomannan of BAL fluid sent to , bacterial PCR of BAL fluid, fungal PCR of BAL fluid - given likely prolonged corticosteroids, start bactrim DS 1 tablet three times WEEKLY for PCP prophylaxis Thank you for this interesting consult. We will continue to follow and plan bronchoscopy tomorrow 04/13. Please call pulmonology for any questions or concerns Time Spent With Patient Time with patient: 70 minutes or more, with 50% spent counseling/coordinating
[2023-04-13] VITALS (9 sets, daily range): BP systolic 117–138; BP diastolic 74–90; PULSE 84–111; RESP 16–20; TEMP 36.2–37.4; O2SAT 90–97
[2023-04-13 05:23] LABS: Hematocrit 37.6 % (41-53); Hemoglobin 13.3 g/dL (13.5-17.5); Mean Corpuscular HGB Conc 35.2 % (30-36); Mean Corpuscular Hemoglobin 30.1 PG (26-34); Mean Corpuscular Volume 85.5 fL (80-100); Platelet Count 302 X10^3/uL (150-400); Red Cell Distribution Width 14.5 % (11.6-14.8); White Blood Cell Count 8.6 X10^3/uL (4.5-11.0)
[2023-04-13 05:27] LABS: BUN Creatinine Ratio 14.1 (6-22); Blood Urea Nitrogen 12 mg/dL (9-20); Calcium 8.6 mg/dL (8.4-10.2); Carbon Dioxide 27 mmol/L (22-32); Chloride 104 mmol/L (98-107); Estimated Glomerular Filt Rate > 60 mL/min (>60); Glucose 103 mg/dL (70-100); HEMOLYSIS 18 (0-50); Sodium 137 mmol/L (137-145)
[2023-04-13] MEDS: CEFEPIME 2 GM in SODIUM CHLORIDE 0.9% 100 ML IV ×3 (06:00→21:41)
[2023-04-13] MEDS: SODIUM CHLORIDE 0.9% FLUSH 10 ML IV ×2 (08:55→21:00)
[2023-04-13] MEDS: KETOROLAC 30 MG/ML VIAL IV ×3 (10:32→21:41)
[2023-04-13 12:07] LABS: Vancomycin Trough 9.1 ug/mL (10-20)
[2023-04-13] MEDS: VANCOMYCIN 1,250 MG/250 ML PIGGYBACK 250 MG IV (13:00)
[2023-04-13] MEDS: ENOXAPARIN 40 MG/0.4 ML SYRINGE SUBCUT (13:27)
[2023-04-13] MEDS: DOXYCYCLINE HYCLATE 100 MG TABLET PO ×2 (13:28→21:41)
[2023-04-13] MEDS: SERTRALINE 50 MG TABLET 100 MG PO (13:28)
[2023-04-13] MEDS: guaiFENesin ER 600 MG TAB PO ×2 (13:28→21:41)
[2023-04-13] MEDS: VANCOMYCIN TROUGH 1 REQUEST MISC (13:29)
[2023-04-13] MEDS: TRIMETH/SULFA 160/800 (DS) TABLET 1 TAB PO (13:31)
--- NOTE | 2023-04-13 13:37 | PM.PN.1 ---
Subjective Subjective Interval history: Breathing about the same, labored with talking. Minimal cough. No hemoptysis. 3 liters O2. Desats on 2 liters as of yesterday. Exam Vital Signs (past 8 hours): - 04/13/23 08:00 04/13/23 10:00 04/13/23 12:00 Temperature 97.2 F L 98.6 F Pulse Rate 104 H 84 Respiratory Rate 18 16 Blood Pressure 131/87 117/74 Pulse Oximetry 97 95 90 L Oxygen Delivery Method Nasal Cannula Oxygen Flow Rate 4 4 3 04/13/23 12:32 Temperature Pulse Rate Respiratory Rate Blood Pressure Pulse Oximetry 92 Oxygen Delivery Method Oxygen Flow Rate 3 Fraction of Inspired Oxygen 36 SaO2/FiO2 Ratio 250 Oxygen Delivery Method Nasal Cannula Oxygen Flow Rate 3 Narrative Exam Narrative: NAD Lungs clear, normal effort CV regular and without murmur. Abdomen soft No leg edema No skin rash Objective Imaging CT scan - chest: Radiologist's impression: MPRESSION:? No pulmonary embolus. Severe multifocal ground-glass opacities concerning for atypical infection. Mediastinal lymphadenopathy likely reactive. Labs 04/13/23 04:30 04/13/23 04:30 Labs: Laboratory Results - last 24 hr 04/13/23 04/13/23 04/13/23 04:30 04:30 11:25 WBC 8.6 RBC 4.40 L Hgb 13.3 L Hct 37.6 L MCV 85.5 MCH 30.1 MCHC 35.2 RDW 14.5 Plt Count 302 Sodium 137 Potassium 4.0 Chloride 104 Carbon Dioxide 27 BUN 12 Creatinine 0.85 Estimated GFR > 60 BUN/Creatinine Ratio 14.1 Glucose 103 H Calcium 8.6 Vancomycin Trough 9.1 L PFSH Medical History Depression Headache HTN (hypertension) Psoriasis Psoriatic arthritis Sleep apnea Surgical History H/O foot surgery History of lumbar surgery Social History household members: spouse Smoking Status: Former smoker alcohol intake: current Assessment & Plan Assessment & Plan narrative: 1. Acute respiratory failure secondary to pneumonia vs organizing pneumonia. POA. -initial concern was for pneumonia -was treated with vanc, cefepime, doxy with today being day 5 of treatment -no leukocytososis, normal procal -CTA chest on 04/09 with severe bilateral multifocal ground-glass opacities consistent with atypical PNA vs organizing pna secondary to viral Pna. -no significant improvement in oxygen requirement with treatment -given immunosuppression and methotrexate technician terminal and repeater treatment have some concern for atypical infection vs pneumonitis (less so). -Bronch not possible at [place], discussed with pulm ([facility] and [facility] at [facility]). Recommend transfer to [facility] for bronch. Calls made, no beds, and on list. ? 2. Psoriatic arthritis on immunosuppression therapy, POA. ?- hold enbrel and MTX for now 3. HTN, POA. ?- hold lisinopril in setting of low-normal BP 4. Anxiety and depression, POA. ?- continue sertraline Time Spent With Patient Time with patient: 30 to 49 minutes with 50% spent counseling/coordinating care Quality VTE Deep Vein Thrombosis/Pulmonary Embolism Present on Admission: No
--- NOTE | 2023-04-13 13:49 | PM.PN.1 ---
Subjective Subjective Date Patient Seen: 04/13/23 Time Patient Seen: 13:50 Interval history: Pulmonary follow-up note Diagnoses: Acute respiratory failure with hypoxemia Diffuse lung disease, upper lung zone predominant interstitial thickening with mixed ground-glass opacity, most likely organizing pneumonia (recent) History of COVID requiring hospitalization History psoriatic arthritis on Enbrel and methotrexate Chart reviewed, patient continues support on supplemental O2 4 L/minute, SpO2 92-95% S: Feels ?okay?, wondering when he can go home Plan/recommendations: -recommend strong consideration of transfer where a diagnostic bronchoscopy to rule out Pneumocystis, opportunistic infection including fungal as recommended in yesterday's note -continue supplemental O2 for goal SpO2 90-95% -start prednisone as recommended by Dr. Leach Exam Vital Signs (past 8 hours): - 04/13/23 08:00 04/13/23 10:00 04/13/23 12:00 Temperature 97.2 F L 98.6 F Pulse Rate 104 H 84 Respiratory Rate 18 16 Blood Pressure 131/87 117/74 Pulse Oximetry 97 95 90 L Oxygen Delivery Method Nasal Cannula Oxygen Flow Rate 4 4 3 04/13/23 12:32 Temperature Pulse Rate Respiratory Rate Blood Pressure Pulse Oximetry 92 Oxygen Delivery Method Oxygen Flow Rate 3 Fraction of Inspired Oxygen 36 SaO2/FiO2 Ratio 250 Oxygen Delivery Method Nasal Cannula Oxygen Flow Rate 3 Objective Labs 04/13/23 04:30 04/13/23 04:30 Labs: Laboratory Results - last 24 hr 04/13/23 04/13/23 04/13/23 04:30 04:30 11:25 WBC 8.6 RBC 4.40 L Hgb 13.3 L Hct 37.6 L MCV 85.5 MCH 30.1 MCHC 35.2 RDW 14.5 Plt Count 302 Sodium 137 Potassium 4.0 Chloride 104 Carbon Dioxide 27 BUN 12 Creatinine 0.85 Estimated GFR > 60 BUN/Creatinine Ratio 14.1 Glucose 103 H Calcium 8.6 Vancomycin Trough 9.1 L PFSH Medical History Depression Headache HTN (hypertension) Psoriasis Psoriatic arthritis Sleep apnea Surgical History H/O foot surgery History of lumbar surgery Social History household members: spouse Smoking Status: Former smoker alcohol intake: current Assessment & Plan Assessment and plan (1) Pneumonia: Problem details: Acute hypoxemic respiratory failure due to pneumonia with likely superimposed ILD organizing pneumonia less likely AEP or opportunistic infection such as PCP pneumonia Qualifiers: Laterality: bilateral Lung location: unspecified part of lung Pneumonia type: due to unspecified organism Qualified Code(s): J18.9 - Pneumonia, unspecified organism Status: Acute Plan: Diffuse lung disease most likely postviral organizing pneumonia. Degree of immune suppression warrants eval for opportunistic infection including Pneumocystis, fungal, etc. Unable to do diagnostic procedure today. -Recommend strong consideration of transfer where a diagnostic bronchoscopy can be performed to rule out Pneumocystis, opportunistic infection including fungal as recommended in yesterday's note -Continue supplemental O2 for goal SpO2 90-95% -Start prednisone as recommended Time Spent With Patient Time with patient: 30 to 49 minutes with 50% spent counseling/coordinating care Quality VTE Deep Vein Thrombosis/Pulmonary Embolism Present on Admission: No
[2023-04-13] MEDS: ACETAMINOPHEN 325 MG TABLET 650 MG PO (21:49)
[2023-04-14] VITALS (8 sets, daily range): BP systolic 109–130; BP diastolic 70–88; PULSE 58–110; RESP 16–22; TEMP 35.8–37.2; O2SAT 91–97
[2023-04-14] MEDS: CEFEPIME 2 GM in SODIUM CHLORIDE 0.9% 100 ML IV ×3 (06:13→21:28)
[2023-04-14] MEDS: PANTOPRAZOLE DR 40 MG TABLET PO (06:14)
[2023-04-14] MEDS: guaiFENesin ER 600 MG TAB PO ×2 (09:16→21:26)
[2023-04-14] MEDS: DOXYCYCLINE HYCLATE 100 MG TABLET PO ×2 (09:16→21:27)
[2023-04-14] MEDS: KETOROLAC 30 MG/ML VIAL IV ×2 (09:16→16:06)
[2023-04-14] MEDS: SERTRALINE 50 MG TABLET 100 MG PO (09:16)
[2023-04-14] MEDS: SODIUM CHLORIDE 0.9% FLUSH 10 ML IV ×2 (09:17→21:27)
--- NOTE | 2023-04-14 17:07 | P.PN_ITS ---
Subjective Subjective Interval history: Awaiting transfer to [facility] for pulm consult and bronch however no beds. Still on 3L NC. Has no new complaints. Exam Vital Signs (past 8 hours): - 04/14/23 10:26 04/14/23 12:27 04/14/23 16:00 Temperature 97.9 F 97.5 F L Pulse Rate 86 110 H Respiratory Rate 16 20 Blood Pressure 130/88 120/86 Pulse Oximetry 93 91 Oxygen Delivery Method Nasal Cannula Oxygen Flow Rate 3 3 Fraction of Inspired Oxygen 32 SaO2/FiO2 Ratio 293 Oxygen Delivery Method Nasal Cannula Oxygen Flow Rate 3 Narrative Exam Narrative: NAD, frequent coughing Lungs clear, normal effort CV regular and without murmur. Abdomen soft No leg edema No skin rash Objective Labs 04/13/23 04:30 04/13/23 04:30 Labs: Laboratory Results - last 24 hr 04/12/23 12:35 Ref Test (Refrig) Comment [facility] Medical History Depression Headache HTN (hypertension) Psoriasis Psoriatic arthritis Sleep apnea Surgical History H/O foot surgery History of lumbar surgery Social History household members: spouse Smoking Status: Former smoker alcohol intake: current Assessment & Plan Assessment & Plan narrative: 1. Acute respiratory failure secondary to pneumonia vs organizing pneumonia. POA. -initial concern was for pneumonia -was treated with vanc, cefepime, doxy with today being day 5 of treatment -no leukocytososis, normal procal -CTA chest on 04/09 with severe bilateral multifocal ground-glass opacities consistent with atypical PNA vs organizing pna secondary to viral Pna. -no significant improvement in oxygen requirement with treatment -given immunosuppression and methotrexate retirement treatment have some concern for atypical infection vs pneumonitis (less so). -Bronch not possible at [place], discussed with pulm (Dr. Mendez at [place] and Dr. Nino at [facility]). Recommend transfer to [facility] for bronch. Calls made, no beds, and on list. ? 2. Psoriatic arthritis on immunosuppression therapy, POA. ?- hold enbrel and MTX for now 3. HTN, POA. ?- hold lisinopril in setting of low-normal BP 4. Anxiety and depression, POA. ?- continue sertraline Dispo: Pending transfer to [facility]. Time Spent With Patient Time with patient: 30 to 49 minutes with 50% spent counseling/coordinating care Quality VTE Deep Vein Thrombosis/Pulmonary Embolism Present on Admission: No
[2023-04-14] MEDS: LORazepam 0.5 MG TABLET PO (21:27)
[2023-04-14] MEDS: ACETAMINOPHEN 325 MG TABLET 650 MG PO (21:27)
[2023-04-15] VITALS: BP 110/57; PULSE 78; RESP 20; TEMP 36.3; O2SAT 96
[2023-04-15 04:00] VITALS: BP 116/72; PULSE 76; RESP 18; TEMP 36.7; O2SAT 97
[2023-04-15] MEDS: PANTOPRAZOLE DR 40 MG TABLET PO (06:16)
[2023-04-15] MEDS: CEFEPIME 2 GM in SODIUM CHLORIDE 0.9% 100 ML IV ×2 (06:16→14:52)
[2023-04-15] MEDS: SERTRALINE 50 MG TABLET 100 MG PO (08:09)
[2023-04-15] MEDS: ACETAMINOPHEN 325 MG TABLET 650 MG PO (08:09)
[2023-04-15] MEDS: guaiFENesin ER 600 MG TAB PO (08:10)
[2023-04-15] MEDS: TRIMETH/SULFA 160/800 (DS) TABLET 1 TAB PO (08:10)
[2023-04-15] MEDS: SODIUM CHLORIDE 0.9% FLUSH 10 ML IV (08:11)
[2023-04-15 09:03] LABS: Add Manual Diff / Slide Review NO; Basophils Absolute Auto 100 /uL (0-100); Basophils Percent Auto 0.9 % (0-2); Eosinophils Absolute Auto 600 /uL (0-450); Eosinophils Percent Auto 6.2 % (2-4); Hematocrit 37.7 % (41-53); Lymphocytes Absolute Auto 1600 /uL (1100-4500); Lymphocytes Percent Auto 16.9 % (25-40); Mean Corpuscular HGB Conc 34.6 % (30-36); Mean Corpuscular Hemoglobin 29.6 PG (26-34); Mean Corpuscular Volume 85.5 fL (80-100); Monocytes Absolute Auto 1300 /uL (0-900); Monocytes Percent Auto 13.9 % (3-14); Neutrophils Absolute Auto 5700 /uL (1500-7000); Neutrophils Percent Auto 62.1 % (50-75); Platelet Count 336 X10^3/uL (150-400); Red Cell Distribution Width 14.5 % (11.6-14.8); White Blood Cell Count 9.2 X10^3/uL (4.5-11.0)
[2023-04-15 09:19] LABS: BUN Creatinine Ratio 15.6 (6-22); Blood Urea Nitrogen 12 mg/dL (9-20); Calcium 8.5 mg/dL (8.4-10.2); Carbon Dioxide 22 mmol/L (22-32); Chloride 108 mmol/L (98-107); Estimated Glomerular Filt Rate > 60 mL/min (>60); Glucose 102 mg/dL (70-100); HEMOLYSIS 18 (0-50); Magnesium 2.2 mg/dL (1.6-2.3); Potassium 4.6 mmol/L (3.4-5.1); Sodium 136 mmol/L (137-145)
[2023-04-15 10:44] VITALS: BP 118/65; PULSE 78; RESP 17; TEMP 36.6; O2SAT 97
--- NOTE | 2023-04-15 13:48 | PM.DS.1 ---
History of Present Illness History of Present Illness Date Patient Seen: 04/08/23 Time Patient Seen: 14:00 Chief complaint: vertigo, dehydrated, dizzy, bodyaches Narrative: This is a 58 M with PMH of psoriatic arthritis on embrel and methotrexate, depression and anxiety (former ), and HTN who presented with worsening dizziness over the past two days and myalgias. He denies overt fever or chills, cough, but has felt a bit more short of breath. He describes it more of a difficulty / pain with deep inspiration on the top part of his sternum. He denies new rashes, abdominal pain, dysuria, urinary frequency. He has a chronic posterior headache that has returned since this morning as well, though it is a bit better now after therapies in the ER. He denies neck stiffness, vision changes, palpitations, focal numbness or weakness. He has had pseudomonal bacteremia twice in the past, though most recent was still many years ago. In the emergency room, he was febrile to 102.6, with soft but not overtly hypotensive blood pressures, and he was hypoxic with an O2 saturation on room air of 88 percent. Show labs were notable for a normal WBC count, mild hyponatremia with sodium of 134, but the remainder of his labs are unremarkable. Chest x-ray showed cyst was unremarkable. Respiratory panel was negative. Patient was admitted for further management of pneumonia with acute respiratory failure with hypoxia. Discharge Providers Provider Date of admission: 04/08/23 11:02 Discharge Date: 04/15/23 Primary care physician: JUAN PABLO Wilhelm Consults: 04/12/23 12:31 Consult to Pulmonology Routine Comment: Consulting Provider: Merrill Leach Reason for consultation: pneumonia/pneumonitis Has provider been notified: Yes Discharge provider: Jose Juan Leblanc DO Summary Hospital Course Discharge Diagnosis: 1. Acute respiratory failure secondary to pneumonia vs organizing pneumonia. POA. -initial concern was for pneumonia -was treated with vanc, cefepime, doxy. Now off vanc but bactrim added for possible PJP. -no leukocytososis, normal procal -CTA chest on 04/09 with severe bilateral multifocal ground-glass opacities consistent with atypical PNA vs organizing pna secondary to viral Pna. -no significant improvement in oxygen requirement with treatment -given immunosuppression and methotrexate chcf treatment have some concern for atypical infection vs pneumonitis (less so). -Bronch not possible at [place], discussed with pulm (Dr. Mendez at [place] and Dr. Nino at [facility]).?Recommend transfer to [facility] for bronch. [facility] accepts. ? 2. Psoriatic arthritis on immunosuppression therapy, POA. ?- hold enbrel and MTX for now 3. HTN, POA. ?- hold lisinopril in setting of low-normal BP 4. Anxiety and depression, POA. ?- continue sertraline Time Spent with Patient Time spent: Greater than 30 minutes Exam Vital Signs (past 8 hours): - 04/15/23 10:44 Temperature 97.9 F Pulse Rate 78 Respiratory Rate 17 Blood Pressure 118/65 Pulse Oximetry 97 Oxygen Flow Rate 4 Fraction of Inspired Oxygen 32 SaO2/FiO2 Ratio 293 Oxygen Delivery Method Nasal Cannula Oxygen Flow Rate 4 Narrative Exam Narrative: NAD, frequent coughing. Remains on 4L NC. Lungs clear, normal effort CV regular and without murmur. Abdomen soft No leg edema No skin rash Objective Labs 04/15/23 08:50 04/15/23 08:50 Labs: Laboratory Results - last 24 hr 04/12/23 04/12/23 04/15/23 12:30 12:35 08:50 WBC RBC Hgb Hct MCV MCH MCHC RDW Plt Count Neut % (Auto) Lymph % (Auto) [place] % (Auto) Eos % (Auto) Baso % (Auto) Neut # (Auto) Lymph # (Auto) [place] # (Auto) Eos # (Auto) Baso # (Auto) Sodium Potassium Chloride Carbon Dioxide BUN Creatinine Estimated GFR BUN/Creatinine Ratio Glucose Calcium Magnesium 2.2 Ref Test (Refrig) Comment Comment 04/15/23 04/15/23 08:50 08:50 WBC 9.2 RBC 4.40 L Hgb 13.0 L Hct 37.7 L MCV 85.5 MCH 29.6 MCHC 34.6 RDW 14.5 Plt Count 336 Neut % (Auto) 62.1 Lymph % (Auto) 16.9 L [place] % (Auto) 13.9 Eos % (Auto) 6.2 H Baso % (Auto) 0.9 Neut # (Auto) 5700 Lymph # (Auto) 1600 [place] # (Auto) 1300 H Eos # (Auto) 600 H Baso # (Auto) 100 Sodium 136 L Potassium 4.6 Chloride 108 H Carbon Dioxide 22 BUN 12 Creatinine 0.77 Estimated GFR > 60 BUN/Creatinine Ratio 15.6 Glucose 102 H Calcium 8.5 Magnesium Ref Test (Refrig) PFSH Medical History Depression Headache HTN (hypertension) Psoriasis Psoriatic arthritis Sleep apnea Surgical History H/O foot surgery History of lumbar surgery Social History household members: spouse Smoking Status: Former smoker alcohol intake: current Discharge Plan Discharge Plan Patient Disposition: er Acute Care Hospital Discharge Data Primary Care Provider: Anum Tobin VTE Deep Vein Thrombosis/Pulmonary Embolism Present on Admission: No
[2023-04-15 14:47] VITALS: BP 120/70; PULSE 80; RESP 16; TEMP 36.6; O2SAT 98
--- NOTE | 2023-04-15 16:27 | PC.NURSE ---
Discharge Note Patient A&O, VSS, RA, no complaints of pain/discomfort. Patient agreeable to plan for hospital to hospital transfer. Patient able to pack all belongings. PIV left in intact. Report given to receiving RN at [facility] and to ACLS crew, all questions/concerns addressed. Patient transferred to stretcher without difficulty. Patient belongings given to patient. Patient taken off unit per ACLS crew.
== END 2023-04-15 16:00 | disposition short-term general hospital (02) | DRG 193 ==
LOC: ED 10:42 → AC 11:03
PROVIDERS: Internal Medicine; Student in an Organized Health Care Education/Training Program; Admitting Provider Internal Medicine; Emergency Provider Emergency Medicine; PCP Nurse Practitioner Family; Referring Provider Emergency Medicine; Visit Provider Internal Medicine
DX: J18.9 Pneumonia, unspecified organism (principal); J96.01 Acute respiratory failure with hypoxia; D84.9 Immunodeficiency, unspecified; L40.50 Arthropathic psoriasis, unspecified; F41.9 Anxiety disorder, unspecified; F32.A Depression, unspecified; Z87.891 Personal history of nicotine dependence; Z79.631 Long term (current) use of antimetabolite agent
CPT/HCPCS: 36415; 71045; 71275; 80048; 80053; 80202; 81001; 82550; 83605; 83735; 84145; 84484; 85025; 85027; 85610; 85730; 87040; 87633; 87797; 93005; 93010; 94640; 94762; 96365; 96366; 99233; 99285; 99291; J0692; J1650; J1885; J1956; Q9967

== ENCOUNTER → 2023-06-15 08:29 | Outpatient (CLI) | payer MEDICARE, OTHER, SELFPAY ==
[2023-04-08 12:06] VITALS: BMI 30.1
--- NOTE | 2023-06-15 08:31 | DI.CT.S_ITS ---
PROCEDURE: CT CHEST HIGH RESOLUTION INDICATIONS: Interstitial pulmonary disease TECHNIQUE: Noncontrast 1.0 and 5.0 mm thick contiguous axial sections from the pulmonary apex to the posterior costophrenic angles, with 7 mm thick coronal and sagittal MIP reformats. 1 mm thick dynamic expiratory images acquired through the upper, mid, and lower lungs. 1.0 mm thick axial sections acquired from the irina to the posterior costophrenic angles in the prone end-inspiration position. For radiation dose reduction, the following was used: automated exposure control, adjustment of mA and/or kV according to patient size. COMPARISON: [facility], CT, CT CHEST WITHOUT CONTRAST, 04/16/2023, 8:10. FINDINGS: Image quality: Excellent. Lungs: Mild paraseptal emphysema. Mild peripheral reticulation of the lung apices. Resolved ground-glass and interstitial thickening. No honeycombing, bronchiectasis or air trapping. 3-4 millimeter solid nodule in the right upper lobe (series 8, image 91). Pleura: No pleural effusions or pneumothorax. Mediastinum: Heart size is normal. No pericardial effusion. Thoracic aorta and central pulmonary arteries are normal in size. Esophagus is normal in caliber. Small hiatal hernia. Bones and chest wall: No suspicious bony lesions. No vertebral body compression fractures. Abdomen: Mild hepatic steatosis. IMPRESSION: Resolved infectious/inflammatory process compared with 04/16/2023. Mild paraseptal emphysema, with associated peripheral reticulation of the lung apices. Early interstitial lung disease is a consideration, in a non UIP distribution. 3-4 millimeter solid nodule in the right upper lobe. Consider 12 month follow-up if at high risk for developing lung cancer, per Fleischner Society guidelines. Dictated by: Rolando Pierce M.D. on 06/15/2023 at 9:17 Approved by: Rolando Pierce M.D. on 06/15/2023 at 9:21
== END ==
PROVIDERS: PCP Nurse Practitioner Family; Referring Provider Internal Medicine Critical Care Medicine; Visit Provider Internal Medicine Critical Care Medicine
DX: J84.9 Interstitial pulmonary disease, unspecified (principal); J43.8 Other emphysema; R91.1 Solitary pulmonary nodule
CPT/HCPCS: 71250

== ENCOUNTER 2023-12-25 05:50 | Emergency (ER) | payer MEDICARE, OTHER, SELFPAY ==
[2023-04-08 12:06] VITALS: BMI 30.1
[2023-12-25 05:56] VITALS: BP 160/82; PULSE 72; RESP 18; TEMP 37; O2SAT 96; BMI 30.1
[2023-12-25 06:14] LABS: Strep Grp A by PCR Rapid Negative (Negative)
--- NOTE | 2023-12-25 06:22 | DI.RAD.S_ITS ---
PROCEDURE: XR CHEST 1V INDICATIONS: cough TECHNIQUE: One view of the chest was acquired. COMPARISON: [facility], CT, CT CHEST WITHOUT CONTRAST, 04/16/2023, 8:10. [facility], CR, XR CHEST 1V, 04/08/2023, 7:13. FINDINGS: Surgical changes and devices: None. Lungs and pleura: Lungs are clear. No pleural effusions or pneumothorax. Mediastinum: Mediastinal contours appear normal. Heart size is normal. Bones and chest wall: No suspicious bony lesions. Overlying soft tissues appear unremarkable. IMPRESSION: No acute cardiopulmonary abnormality is seen. No focal infiltrates are seen. Note: No significant discrepancy from the preliminary report. Dictated by: Brad Rausch M.D. on 12/25/2023 at 8:01 Approved by: Brad Rausch M.D. on 12/25/2023 at 8:03
--- NOTE | 2023-12-25 06:27 | ED.URI ---
HPI - URI/Sore Throat General Chief Complaint: Upper Respiratory Symptoms Stated Complaint: Sore throat cough Two weeks Time Seen by Provider: 12/25/23 06:01 Source: patient Mode of arrival: Ambulatory History of Present Illness HPI Narrative: Patient is a 58-year-old male history of hypertension psoriasis arthritis on Enbrel and methotrexate presenting today with 2 weeks of a cough. He denies any sort of fever but he has had some sore throat and coughing. He says cough is worse at night denies any significant shortness of breath. Patient was admitted previously in March for 60s with pneumonia required some oxygen. He was ultimately transferred to [facility] where he had a bronchoscopy and he states was diagnosed with Matilde albicans pneumonia. He denies any shortness of breath he has not been hypoxic at home. He just gets coughing fits and can not stop. He also has acid reflux he has been taking antacid medication. Here today because he is just having some trouble sleeping sore throat. Related Data Home Medications Medication Instructions Recorded Confirmed lisinopril 20 mg tablet 20 mg PO DAILY 09/22/22 05/17/23 omeprazole 40 mg capsule,delayed 40 mg PO DAILY 09/22/22 05/17/23 release sertraline 100 mg tablet 100 mg PO DAILY 09/22/22 05/17/23 dupilumab 300 mg/2 mL subcutaneous 300 mg SUBCUT QWEEK 06/21/23 06/21/23 pen injector (Dupixent) Previous Rx's Medication Instructions Recorded Discontinue Home Oxygen #1 ea 05/17/23 sulfamethoxazole 400 1 tab PO 3XW #30 tabs 05/17/23 mg-trimethoprim 80 mg tablet (Bactrim) guaifenesin 1,200 mg tablet, 1,200 mg PO Q12H #20 tabs 12/25/23 extended release 12 hr (Mucinex) Allergies Allergy/AdvReac Type Severity Reaction Status Date / Time oxycodone [From Percocet] AdvReac Unknown Vomiting Verified 12/25/23 06:01 Patient History Medical History Depression Headache HTN (hypertension) Psoriasis Psoriatic arthritis Sleep apnea Surgical History H/O foot surgery History of lumbar surgery Social History household members: spouse Smoking Status: Former smoker alcohol intake: current Smoking Status: Former smoker alcohol intake frequency: holidays/special occasions only Substance Use Type: marijuana Exam Initial Vital Signs Initial Vital Signs: Vital Signs Temperature 98.6 F 12/25/23 05:56 Pulse Rate 72 12/25/23 05:56 Respiratory Rate 18 12/25/23 05:56 Blood Pressure 160/82 H 12/25/23 05:56 Pulse Oximetry 96 12/25/23 05:56 Oxygen Delivery Method Room Air 12/25/23 05:56 GENERAL: Alert male HEENT: Head atraumatic,EOMI, pupils reactive, face symmetric, moist mucous membranes PHARYNX: No significant erythema no uvula deviation CARDIOVASCULAR: Regular rate and rhythm without murmurs, rubs or gallops. RESPIRATORY: Breath sounds equal bilaterally, no wheezes rales or rhonchi. ABDOMEN: Soft, nontender. Normoactive bowel sounds all 4 quadrants. No guarding or rebound. EXTREMITIES: Normal range of motion, no clubbing or edema. Neurovascularly intact NEUROLOGICAL: Alert and oriented x4.Normal gait and speech. SKIN: Warm, dry, no laceration, no petechiae, no rashes or lesions. Course Orders Ordered: ED Orders 12/25/23 06:00 Strep Grp A by PCR Rapid Stat Throat Culture Stat 12/25/23 06:22 Chest [XR chest 1V] Stat Vital Signs Vital signs: Vital Signs - 8 hr 12/25/23 05:56 Temperature 98.6 F Pulse Rate 72 Respiratory Rate 18 Blood Pressure 160/82 H Pulse Oximetry 96 Oxygen Delivery Method Room Air MDM - URI/Sore Throat Lab Data Labs: Lab Results 12/25/23 Range/Units 06:00 Group A Strep (PCR) Negative (Negative) Imaging Data Chest x-ray: Radiologist's Impression: No acute cardiopulmonary abnormality [facility] Narrative Medical decision making narrative: Patient 58-year-old male history of hypertension psoriatic arthritis previous Pseudomonas bacteremia and atypical pneumonia presents today with ongoing cough and sore throat. He overall appears well and nontoxic. He is afebrile. Rapid strep is negative. Chest x-ray negative for pneumonia. He has no wheezing or respiratory distress. At this time I recommend supportive care. We talked about Mucinex. Also if symptoms are worsen to return to the ED. Discharge Plan Departure Patient Disposition: Home Clinical Impression: Acute upper respiratory infection Instructions: DI for Viral Upper Respiratory Infection -- Adult Activity Restrictions/Additional Instructions: *You have been diagnosed with upper respiratory infection *What to do: At this time x-ray is negative strep is negative. You likely have a viral cold. *Continue to take medications as directed Mucinex 1200 mg every 12 hours sent to [facility] *Follow up with your primary care provider in 2-3 days or call [phone] *Return to ER if you should have increasing shortness of breath fever or any new, worsening or concerning symptoms Prescriptions: New guaifenesin [Mucinex] 1,200 mg tablet extended release 12hr 1,200 mg PO Q12H Qty: 20 0RF No Action lisinopril 20 mg Tablet 20 mg PO DAILY sertraline 100 mg Tablet 100 mg PO DAILY omeprazole 40 mg capsule,delayed release(DR/EC) 40 mg PO DAILY Patient Comments: take 1 capsule by mouth twice a day before meals (DME) Discontinue Home Oxygen See Rx Instructions .Route .MEDSUPPLY Qty: 1 0RF Rx Instructions: D/C at home o2 therapy sulfamethoxazole-trimethoprim [Bactrim] 400-80 mg tablet 1 tab PO 3XW Qty: 30 1RF Dupixent Pen 300 mg/2 mL pen injector 300 mg SUBCUT QWEEK Referrals: Anum Tobin ARNP [Primary Care Provider] - Stand Alone Forms: Patient Portal/API
[2023-12-25 06:52] VITALS: BP 127/83; PULSE 77; RESP 18; O2SAT 95
== END 2023-12-25 06:52 | disposition home or self-care (01) ==
PROVIDERS: Emergency Provider Emergency Medicine; PCP Nurse Practitioner Family
DX: J06.9 Acute upper respiratory infection, unspecified (principal); Z87.891 Personal history of nicotine dependence
CPT/HCPCS: 71045; 87070; 87651; 99281; 99284

== ENCOUNTER 2024-03-19 11:52 | Emergency (ER) | payer MEDICARE, OTHER, SELFPAY ==
[2023-04-08 12:06] VITALS: BMI 30.1
[2024-03-19 12:01] VITALS: BP 181/92; PULSE 70; RESP 16; TEMP 36.8; O2SAT 96; BMI 29.2
--- NOTE | 2024-03-19 12:58 | DI.CT.S_ITS ---
PROCEDURE: CT SOFT TISSUE NECK W CON INDICATIONS: hoarseness x 2 months TECHNIQUE: After the administration of intravenous contrast, 3.0 mm axial sections acquired from the sella to the aortic arch. Additional oblique axial 3.0 mm sections acquired through the pharynx. 3 mm thick coronal and sagittal reformats were generated. For radiation dose reduction, the following was used: automated exposure control. COMPARISON: None. FINDINGS: Image quality: Excellent. Lymph nodes: No enlarged lymph nodes seen throughout the neck. Vessels: Visualized vasculature appears patent. Neck spaces: The oropharynx, nasopharynx, and pharynx demonstrate no mucosal lesions. The vocal cords, false vocal cords, pyriform sinuses, epiglottis, vallecula, and tongue base all appear normal. Extramucosal spaces appear unremarkable. Glands: The parotid and submandibular glands appear normal. Thyroid gland is unremarkable. Miscellaneous: Visualized brain and orbits appear normal. Lung apices appear clear. Superficial soft tissues appear normal. Bones: No suspicious bony lesions. Visualized sinuses and mastoids appear unremarkable. IMPRESSION: No visualized cause of hoarseness. If concern persists, recommend consult with ENT. Dictated by: Ally Winters M.D. on 03/19/2024 at 13:57 Approved by: Ally Winters M.D. on 03/19/2024 at 13:58
--- NOTE | 2024-03-19 13:09 | ED_ITS ---
HPI - General Adult <Chrsitina Hartman PA-C - Last Filed: 03/19/24 15:49> General Chief complaint: Upper Respiratory Symptoms Stated complaint: loosing his voice t-2months Time Seen by Provider: 03/19/24 12:23 Source: patient Mode of arrival: Ambulatory History of Present Illness HPI narrative: 59-year-old male with past medical history psoriatic arthritis, on Dupixent presents to the ED with 2 months of hoarseness. Patient states that he had a cold and a cough for which he was seen in the ER on 12/25/23 and prescribed Mucinex for symptom control. Patient states that he was also prescribed benzonatate sometime later which he took for about a week. Patient states that his cold and cough symptoms resolved, however he started experiencing hoarseness. Patient denies fever, chills, rhinorrhea, chest pain, shortness of breath. Patient reports feeling well other than the hoarse voice. Patient denies dysphagia, sore throat. Patient is a past smoker, quit 3 years ago. Patient denies any thyroid issues. Patient does endorse a history of GERD which is well controlled with omeprazole for the last 2 years. Patient's does note that he coughs quite a bit at night and in the mornings. Patient also endorses that he feels like he needs to clear his throat in the morning. Patient denies any flare-ups of GERD recently. Patient was seen by his health services information specialist recently, referred to ENT for the hoarse voice. Patient has not yet seen an ENT. Patient presents to the ED today since his hoarseness does not seem to be resolving and he is unable to get any appointments in a timely fashion. Related Data Home Medications Medication Instructions Recorded Confirmed lisinopril 20 mg tablet 20 mg PO DAILY 09/22/22 05/17/23 omeprazole 40 mg capsule,delayed 40 mg PO DAILY 09/22/22 05/17/23 release sertraline 100 mg tablet 100 mg PO DAILY 09/22/22 05/17/23 dupilumab 300 mg/2 mL subcutaneous 300 mg SUBCUT QWEEK 06/21/23 06/21/23 pen injector (Dupixent) Previous Rx's Medication Instructions Recorded Discontinue Home Oxygen #1 ea 05/17/23 sulfamethoxazole 400 1 tab PO 3XW #30 tabs 09/19/23 mg-trimethoprim 80 mg tablet (Bactrim) guaifenesin 1,200 mg tablet, 1,200 mg PO Q12H #20 tabs 12/25/23 extended release 12 hr (Mucinex) Allergies Allergy/AdvReac Type Severity Reaction Status Date / Time oxycodone [From Percocet] AdvReac Unknown Vomiting Verified 12/25/23 06:01 Review of Systems <Christina Hartman PA-C - Last Filed: 03/19/24 15:49> Constitutional Constitutional: Denies chills, Denies fatigue, Denies fever(s), Denies frequent falls, Denies lethargy and Denies weakness Eyes Eyes: Denies change in vision, Denies eye discharge, Denies irritation and Denies loss of vision ENT Ears, Nose, Mouth, and Throat: Denies change in voice, Denies dizziness, Reports hoarseness, Denies neck pain, Denies sore throat and Denies throat swelling Cardiovascular Cardiovascular: Denies chest pain, Denies irregular heart rhythm, Denies lightheadedness, Denies palpitations, Denies dyspnea, Denies dyspnea on exertion and Denies orthopnea Respiratory Respiratory: Denies cough, Denies dyspnea, Denies dyspnea on exertion and Denies wheezing Gastrointestinal Gastrointestinal: Denies abdominal pain, Denies change in bowel habits, Denies diarrhea, Denies nausea and Denies vomiting Musculoskeletal Musculoskeletal: Denies neck pain and Denies numbness Integumentary/Breasts Skin/Breast: Denies pruritus, Denies erythema, Denies rash and Denies wounds Neurologic Neurologic: Denies behavioral changes, Denies confusion, Denies dizziness, Denies frequent falls, Denies loss of vision, Denies numbness and Denies weakness Psychiatric Psychiatric: Denies anxiety, Denies behavioral changes, Denies confusion, Denies depression, Denies homicidal ideation and Denies suicidal ideation Endocrine Endocrine: Denies fatigue, Denies flushing and Denies palpitations Hematologic/Lymphatic Hematologic/Lymphatic: Denies easy bruising Allergic/Immunologic Allergic/Immunologic: Denies urticaria, Denies throat swelling and Denies wheezing Patient History <Christina Hartman PA-C - Last Filed: 03/19/24 15:49> Medical History Sleep apnea Headache HTN (hypertension) Depression Psoriasis Psoriatic arthritis Surgical History History of lumbar surgery H/O foot surgery Social History household members: spouse Smoking Status: Former smoker alcohol intake: current Smoking Status: Former smoker alcohol intake frequency: holidays/special occasions only Substance Use Type: marijuana Exam <Christina Hartman PA-C - Last Filed: 03/19/24 15:49> Narrative Exam Narrative: Const General:?cooperative, healthy appearing and comfortable [facility] Head:?normal to inspection Ears:?hearing grossly normal bilaterally Nose:?external nose normal Face and sinus:?normal facial exam and sinuses nontender Mouth:?oral mucosae normal Throat:?posterior oropharynx normal Eyes General:?appearance normal, both eyes and all related structures Neck Neck:?normal visual inspection and no lymphadenopathy noted Resp Effort & Inspection:?normal respiratory effort Auscultation:?clear to auscultation bilaterally Cardio Rate:?regular rate Rhythm:?regular rhythm Neuro General:?patient alert, patient awake and patient oriented x3 Initial Vital Signs Initial Vital Signs: Vital Signs Temperature 98.3 F 03/19/24 12:01 Pulse Rate 70 03/19/24 12:01 Respiratory Rate 16 03/19/24 12:01 Blood Pressure 181/92 H 03/19/24 12:01 Pulse Oximetry 96 03/19/24 12:01 Oxygen Delivery Method Room Air 03/19/24 12:01 <Sheyla Ferrera DO - Last Filed: 03/26/24 17:20> Initial Vital Signs Initial Vital Signs: Vital Signs Temperature 98.3 F 03/19/24 12:01 Pulse Rate 70 03/19/24 12:01 Respiratory Rate 16 03/19/24 12:01 Blood Pressure 181/92 H 03/19/24 12:01 Pulse Oximetry 96 03/19/24 12:01 Oxygen Delivery Method Room Air 03/19/24 12:01 Course <Christina Hartman PA-C - Last Filed: 03/19/24 15:49> Orders Ordered: ED Orders 03/19/24 12:58 CT soft tissue neck w con Stat 03/19/24 13:07 CBC Auto Diff [Complete Blood Count AUTO DIFF] Stat CMP [Comprehensive Metabolic Panel] Stat Lipase Stat TSH [Thyroid Stimulating Hormone] Stat Vital Signs Vital signs: Vital Signs - 8 hr 03/19/24 12:01 03/19/24 15:17 Temperature 98.3 F Pulse Rate 70 60 Respiratory Rate 16 16 Blood Pressure 181/92 H 158/96 H Pulse Oximetry 96 96 Oxygen Delivery Method Room Air Room Air <Sheyla Ferrera DO - Last Filed: 03/26/24 17:20> Orders Ordered: ED Orders 03/19/24 12:58 CT soft tissue neck w con Stat 03/19/24 13:07 CBC Auto Diff [Complete Blood Count AUTO DIFF] Stat CMP [Comprehensive Metabolic Panel] Stat Lipase Stat TSH [Thyroid Stimulating Hormone] Stat Vital Signs Vital signs: Vital Signs - 8 hr 03/19/24 12:01 03/19/24 15:17 Temperature 98.3 F Pulse Rate 70 60 Respiratory Rate 16 16 Blood Pressure 181/92 H 158/96 H Pulse Oximetry 96 96 Oxygen Delivery Method Room Air Room Air Medical Decision Making <Christina Hartman PA-C - Last Filed: 03/19/24 15:49> Lab Data 03/19/24 13:07 03/19/24 13:07 Labs: Lab Results 03/19/24 Range/Units 13:07 WBC 5.6 (4.5-11.0) X10^3/uL RBC 5.33 (4.5-5.9) X10^6/uL Hgb 15.1 (13.5-17.5) g/dL Hct 43.9 (41-53) % MCV 82.4 (80-100) fL MCH 28.3 (26-34) PG MCHC 34.4 (30-36) % RDW 13.3 (11.6-14.8) % Plt Count 211 (150-400) X10^3/uL Neut % (Auto) 58.2 (50-75) % Lymph % (Auto) 26.4 (25-40) % [place] % (Auto) 12.2 (3-14) % Eos % (Auto) 2.4 (2-4) % Baso % (Auto) 0.8 (0-2) % Neut # (Auto) 3300 (1183-4333) /uL Lymph # (Auto) 1500 (8533-5922) /uL [place] # (Auto) 700 (0-900) /uL Eos # (Auto) 100 (0-450) /uL Baso # (Auto) 0 (0-100) /uL Sodium 137 (137-145) mmol/L Potassium 4.0 (3.4-5.1) mmol/L Chloride 105 (98-107) mmol/L Carbon Dioxide 24 (22-32) mmol/L BUN 14 (9-20) mg/dL Creatinine 1.05 (0.66-1.25) mg/dL Estimated GFR > 60 (>60) mL/min BUN/Creatinine Ratio 13.3 (6-22) Glucose 112 H (70-100) mg/dL Calcium 8.6 (8.4-10.2) mg/dL Total Bilirubin 0.8 (0.2-1.3) mg/dL AST 31 (17-59) IU/L ALT 34 (<50) IU/L Alkaline Phosphatase 47 (38-126) U/L Total Protein 7.2 (6.3-8.2) g/dL Albumin 4.5 (3.5-5.0) g/dL Globulin 2.7 (1.7-4.1) g/dL Albumin/Globulin Ratio 1.7 (1.0-2.8) Lipase 86 (23-300) U/L TSH 3.12 (0.47-4.68) uIU/mL MDM Narrative Medical decision making narrative: 59-year-old male with past medical history psoriatic arthritis, on Dupixent presents to the ED with 2 months of hoarseness. Concern for laryngeal pharyngeal reflux versus vocal cord malignancy versus thyroid derangements versus neurological disorders versus other. Will obtain labs, TSH, CT neck. Will reassess. Labs and TSH within normal limits. CT scan with no acute findings to explain the hoarseness. Discussed findings with patient. Discussed further evaluation with GI for acid reflux. Recommend follow-up with ENT as well. ED return precautions discussed with patient. Patient verbalized understanding. Medical records reviewed: Yes <Sheyla Ferrera, - Last Filed: 03/26/24 17:20> Lab Data Labs: Lab Results 03/19/24 Range/Units 13:07 WBC 5.6 (4.5-11.0) X10^3/uL RBC 5.33 (4.5-5.9) X10^6/uL Hgb 15.1 (13.5-17.5) g/dL Hct 43.9 (41-53) % MCV 82.4 (80-100) fL MCH 28.3 (26-34) PG MCHC 34.4 (30-36) % RDW 13.3 (11.6-14.8) % Plt Count 211 (150-400) X10^3/uL Neut % (Auto) 58.2 (50-75) % Lymph % (Auto) 26.4 (25-40) % [place] % (Auto) 12.2 (3-14) % Eos % (Auto) 2.4 (2-4) % Baso % (Auto) 0.8 (0-2) % Neut # (Auto) 3300 (3099-0262) /uL Lymph # (Auto) 1500 (2999-1649) /uL [place] # (Auto) 700 (0-900) /uL Eos # (Auto) 100 (0-450) /uL Baso # (Auto) 0 (0-100) /uL Sodium 137 (137-145) mmol/L Potassium 4.0 (3.4-5.1) mmol/L Chloride 105 (98-107) mmol/L Carbon Dioxide 24 (22-32) mmol/L BUN 14 (9-20) mg/dL Creatinine 1.05 (0.66-1.25) mg/dL Estimated GFR > 60 (>60) mL/min BUN/Creatinine Ratio 13.3 (6-22) Glucose 112 H (70-100) mg/dL Calcium 8.6 (8.4-10.2) mg/dL Total Bilirubin 0.8 (0.2-1.3) mg/dL AST 31 (17-59) IU/L ALT 34 (<50) IU/L Alkaline Phosphatase 47 (38-126) U/L Total Protein 7.2 (6.3-8.2) g/dL Albumin 4.5 (3.5-5.0) g/dL Globulin 2.7 (1.7-4.1) g/dL Albumin/Globulin Ratio 1.7 (1.0-2.8) Lipase 86 (23-300) U/L TSH 3.12 (0.47-4.68) uIU/mL Discharge Plan Departure Patient Disposition: Home Clinical Impression: Hoarseness Instructions: Loss of Voice Activity Restrictions/Additional Instructions: You were evaluated in the ED today for hoarseness for the last 2 months. Your labs, thyroid, CT scan were normal. While it is unclear why you were experiencing the hoarseness, acid reflux is a consideration that can sometimes cause hoarseness and coughing. Please follow-up with both ENT and a GI specialist for further evaluation and treatment. Return to the ED if you have worsening symptoms, trouble swallowing, throat swelling. Prescriptions: No Action lisinopril 20 mg Tablet 20 mg PO DAILY sertraline 100 mg Tablet 100 mg PO DAILY omeprazole 40 mg capsule,delayed release(DR/EC) 40 mg PO DAILY Patient Comments: take 1 capsule by mouth twice a day before meals guaifenesin [Mucinex] 1,200 mg tablet extended release 12hr 1,200 mg PO Q12H Qty: 20 0RF (DME) Discontinue Home Oxygen See Rx Instructions .Route .MEDSUPPLY Qty: 1 0RF Rx Instructions: D/C at home o2 therapy sulfamethoxazole-trimethoprim [Bactrim] 400-80 mg tablet 1 tab PO 3XW Qty: 30 1RF Dupixent Pen 300 mg/2 mL pen injector 300 mg SUBCUT QWEEK Referrals: Anum Tobin ARNP [Primary Care Provider] - Stand Alone Forms: Patient Portal/API ED Sign-out <Sheyla Ferrera DO - Last Filed: 03/26/24 17:20> Cosign ED Attending Katieature Attestation: I was available for consultation.
[2024-03-19 13:18] LABS: Add Manual Diff / Slide Review NO; Basophils Absolute Auto 0 /uL (0-100); Basophils Percent Auto 0.8 % (0-2); Eosinophils Absolute Auto 100 /uL (0-450); Eosinophils Percent Auto 2.4 % (2-4); Hematocrit 43.9 % (41-53); Hemoglobin 15.1 g/dL (13.5-17.5); Lymphocytes Absolute Auto 1500 /uL (1100-4500); Lymphocytes Percent Auto 26.4 % (25-40); Mean Corpuscular HGB Conc 34.4 % (30-36); Mean Corpuscular Hemoglobin 28.3 PG (26-34); Mean Corpuscular Volume 82.4 fL (80-100); Monocytes Absolute Auto 700 /uL (0-900); Monocytes Percent Auto 12.2 % (3-14); Neutrophils Absolute Auto 3300 /uL (1500-7000); Neutrophils Percent Auto 58.2 % (50-75); Platelet Count 211 X10^3/uL (150-400); Red Blood Cell Count 5.33 X10^6/uL (4.5-5.9); Red Cell Distribution Width 13.3 % (11.6-14.8); White Blood Cell Count 5.6 X10^3/uL (4.5-11.0)
[2024-03-19 13:30] LABS: Alanine Aminotransferase 34 IU/L (<50); Albumin 4.5 g/dL (3.5-5.0); Albumin Globulin Ratio 1.7 (1.0-2.8); Alkaline Phosphatase 47 U/L (38-126); Aspartate Aminotransferase 31 IU/L (17-59); BUN Creatinine Ratio 13.3 (6-22); Bilirubin Total 0.8 mg/dL (0.2-1.3); Blood Urea Nitrogen 14 mg/dL (9-20); Calcium 8.6 mg/dL (8.4-10.2); Carbon Dioxide 24 mmol/L (22-32); Chloride 105 mmol/L (98-107); Estimated Glomerular Filt Rate > 60 mL/min (>60); Globulin 2.7 g/dL (1.7-4.1); Glucose 112 mg/dL (70-100); HEMOLYSIS < 15 (0-50); Lipase 86 U/L (23-300); Sodium 137 mmol/L (137-145); Total Protein 7.2 g/dL (6.3-8.2)
[2024-03-19 14:01] LABS: Thyroid Stimulating Hormone 3.12 uIU/mL (0.47-4.68)
[2024-03-19 15:17] VITALS: BP 158/96; PULSE 60; RESP 16; O2SAT 96
== END 2024-03-19 15:15 | disposition home or self-care (01) ==
PROVIDERS: Emergency Provider Student in an Organized Health Care Education/Training Program; PCP Nurse Practitioner Family
DX: R49.0 Dysphonia (principal)
CPT/HCPCS: 36415; 70491; 80053; 83690; 84443; 85025; 99283; 99284; Q9967

== ENCOUNTER → 2024-03-31 10:38 | Outpatient (CLI) | payer MEDICARE, OTHER, SELFPAY ==
[2023-04-08 12:06] VITALS: BMI 30.1
--- NOTE | 2024-03-31 10:39 | DI.CT.S_ITS ---
PROCEDURE: CT CHEST HIGH RESOLUTION INDICATIONS: hx of ILD and nogules TECHNIQUE: Noncontrast 1.0 and 5.0 mm thick contiguous axial sections from the pulmonary apex to the posterior costophrenic angles, with 7 mm thick coronal and sagittal MIP reformats. 1 mm thick dynamic expiratory images acquired through the upper, mid, and lower lungs. 1.0 mm thick axial sections acquired from the irina to the posterior costophrenic angles in the prone end-inspiration position. For radiation dose reduction, the following was used: automated exposure control, adjustment of mA and/or kV according to patient size. COMPARISON: [facility], CT, CT CHEST HIGH RESOLUTION, 06/15/2023, 8:33. FINDINGS: Image quality: Diagnostic. Lower Neck: No enlarged lymph nodes. Thyroid: No thyroid nodules which require sonographic follow up, per consensus guidelines. Axillae: No enlarged lymph nodes. Chest Wall: Unremarkable. Bones: Unremarkable. Lungs and Pleura: No pneumothorax or pleural effusions. Resolved reticulation at the lung apices. Stable 3-4 mm solid nodule in the right upper lobe (series 3, image 100). Small focus of tree-in-bud nodules in the lateral right upper lobe. Heart: Heart size is normal. No pericardial effusion. Thoracic Vessels: The aorta and pulmonary arteries demonstrate normal size. Mediastinum and [place]: No enlarged lymph nodes. Esophagus: No wall thickening. No hiatal hernia. Upper Abdomen: Hepatic steatosis. IMPRESSION: Resolved reticulation of the lung apices. Findings are most consistent with resolved organizing pneumonia. Stable 3-4 mm solid nodule in the right upper lobe. Small focus of tree-in-bud nodules in the right upper lobe, probably representing a mild infectious/inflammatory bronchiolitis. Dictated by: Rolando Pierce M.D. on 04/01/2024 at 11:53 Approved by: Rolando Pierce M.D. on 04/01/2024 at 11:56
== END ==
LOC: CT 10:38
PROVIDERS: PCP Nurse Practitioner Family; Referring Provider Internal Medicine Critical Care Medicine; Visit Provider Internal Medicine Critical Care Medicine
DX: R91.8 Other nonspecific abnormal finding of lung field (principal); J84.9 Interstitial pulmonary disease, unspecified; K76.0 Fatty (change of) liver, not elsewhere classified
CPT/HCPCS: 71250

== ENCOUNTER → 2024-12-31 07:40 | Outpatient (CLI) | payer MEDICARE, OTHER, SELFPAY ==
[2023-04-08 12:06] VITALS: BMI 30.1
--- NOTE | 2024-12-31 08:13 | DI.MRI.S_ITS ---
PROCEDURE: MR CERVICAL SPINE WO CON INDICATIONS: CERVIAL RADICULOPATHY TECHNIQUE: Noncontrast sagittal T1 spin echo and T2 fast spin echo, sagittal STIR, foraminal oblique sagittal T2 fast spin echo, and axial gradient echo or T2 fast spin echo through the cervical spine. COMPARISON: [facility], CT, CT SOFT TISSUE NECK W CON, 03/19/2024, 13:41. FINDINGS: Image quality: Excellent. Alignment and Curvature: There is mild reversal of the normal cervical lordosis. Grade 1 retrolisthesis at C3-4 and C4-5. Bone Marrow: Marrow demonstrates normal overall signal. Mild Modic type 1 degenerative endplate edema at the C3-4, C4-5, and C6-7 levels. Spinal Cord: Visualized spinal cord has normal size and signal. No cerebellar tonsillar herniation. Paraspinous Soft Tissues: No paravertebral masses. Prevertebral soft tissues are normal in thickness. C2-C3: Disc desiccation without significant spinal canal stenosis or neural foraminal narrowing. C3-C4: Disc desiccation and posterior disc-osteophyte complex as well as bilateral uncovertebral joint and facet hypertrophy, which result in mild narrowing of the spinal canal as well as moderate to severe right and moderate left neural foraminal narrowing. C4-C5: Disc desiccation and posterior disc-osteophyte complex as well as bilateral uncovertebral joint and facet hypertrophy, which result in moderate to severe narrowing of the spinal canal as well as severe bilateral neural foraminal narrowing. There is effacement of the ventral and dorsal CSF spaces without abnormal cord signal. C5-C6: Disc desiccation and posterior disc-osteophyte complex as well as bilateral uncovertebral joint and facet hypertrophy, which result in moderate to severe narrowing of the spinal canal as well as severe bilateral neural foraminal narrowing. There is effacement of the ventral and dorsal CSF spaces without abnormal cord signal. C6-C7: Disc desiccation and posterior disc-osteophyte complex as well as bilateral uncovertebral joint and facet hypertrophy, which result in moderate narrowing of the spinal canal as well as moderate to severe right and severe left neural foraminal narrowing. C7-T1: No significant spinal canal stenosis or neural foraminal narrowing. IMPRESSION: 1. At the C4-5 and C5-6 levels, degenerative changes result in moderate to severe narrowing of the spinal canal and severe bilateral neural foraminal narrowing. 2. High-grade neural foraminal narrowing is also seen at the C3-4 and C6-7 levels. 3. Additional degenerative disc disease, uncovertebral joint hypertrophy, and facet hypertrophy as described in the body of the report. Approved by: Guerrero Cristina M.D. on 01/01/2025 at 14:10
== END ==
PROVIDERS: PCP Family Medicine; Referring Provider Orthopaedic Surgery Orthopaedic Surgery of the Spine; Visit Provider Orthopaedic Surgery Orthopaedic Surgery of the Spine
DX: M47.22 Other spondylosis with radiculopathy, cervical region (principal); M50.11 Cervical disc disorder with radiculopathy, high cervical region; M48.02 Spinal stenosis, cervical region
CPT/HCPCS: 72141